=== PATIENT | female | born 1995 | race Caucasian/White ===

== ENCOUNTER 2017-06-26 17:21 | Emergency (ER) | payer BC ==
[~2017-06-26] VITALS: Ht 162.6 cm; Wt 54.4 kg
[2017-06-26 17:46] VITALS: BP_SYST 127
[2017-06-26] MEDS ORDERED: ONDANSETRON HCL 4 MG/2 ML VIAL IM STA (18:41)
[2017-06-26] MEDS ORDERED: HYDROmorphone 2 MG/ML VIAL IM PRN (18:45)
[2017-06-26 19:27] VITALS: BP_SYST 131
[2017-06-29] MEDS ORDERED: FERR-57 PO (18:55)
[2017-06-29] MEDS ORDERED: DIPH-179 PO (18:55)
[2017-06-29] MEDS ORDERED: PRED20TA PO (18:55)
[2017-06-29] MEDS ORDERED: TOP25 PO (18:55)
[2017-06-29] MEDS ORDERED: SUCR1TAB78 PO (18:55)
[2017-06-29] MEDS ORDERED: VENL75CA PO (18:55)
[2017-06-29] MEDS ORDERED: BUDE3CAP8 PO (18:55)
[2017-06-29] MEDS ORDERED: ONDA4TAB5 PO (18:55)
[2017-06-29] MEDS ORDERED: TRAZ-126 PO (18:55)
[2017-06-30] MEDS ORDERED: PRED10TA PO (10:45)
== END 2017-06-26 19:27 | disposition home or self-care (01) ==
LOC: SED 17:21
DX: N83.299 Other ovarian cyst, unspecified side (principal); Z91.040 Latex allergy status; Z91.018 Allergy to other foods
CPT/HCPCS: 81025; 96372; 99284; J1170; J2405

== ENCOUNTER 2017-08-21 20:51 | Inpatient (IN) | payer BC ==
[~2017-08-21] VITALS: Ht 162.6 cm; Wt 54.4 kg
[~2017-08-21 20:51] MED LIST: BUDE3CAP8 PO; DIPH-179 PO; DOCU-144 PO; FERR-57 PO; ONDA4TAB5 PO; PRED10TA PO; PRED20TA PO; SUCR1TAB78 PO; TOP25 PO; TRAM50TA92 PO; TRAZ-126 PO; VENL75CA PO
[2017-08-21 20:58] VITALS: BP_SYST 130
[2017-08-21] MEDS ORDERED: methylPREDNISolone SOD SUCC/PF 62.5 MG/ML VIAL IVP ONE (21:15)
[2017-08-21] MEDS ORDERED: ONDANSETRON HCL 4 MG/2 ML VIAL IVP ONE (22:00)
[2017-08-21] MEDS ORDERED: NACL 0.9% 1,000 ML IV ONE (22:00)
[2017-08-21 22:49] LABS: CALCIUM 8.7 mg/dL (8.4-11.0); CREATININE 0.64 mg/dL (0.55-1.30); POTASSIUM 3.2 mmol/L (3.5-5.1)
[2017-08-21 22:54] LABS: ALBUMIN 3.5 g/dL (3.4-4.8); TOTAL BILIRUBIN 0.4 mg/dL (0.0-1.0)
[2017-08-21 23:15] LABS: BASOPHILS % (AUTO) 0.2 % (0.0-2.0); EOSINOPHILS # (AUTO) 0.2 K/uL (0.0-0.4); EOSINOPHILS % (AUTO) 1.8 % (0.0-4.0); HEMATOCRIT 40.1 % (36-48); HEMOGLOBIN 12.9 g/dL (12.0-16.0); LYMPHOCYTES # (AUTO) 1.5 K/uL (1.0-5.5); LYMPHOCYTES % (AUTO) 17.1 % (20.5-51.5); MEAN CORPUSCULAR HEMOGLOBIN 32 pg (27-31); MEAN CORPUSCULAR HGB CONC 32 % (32-36); MEAN CORPUSCULAR VOLUME 99 fL (79.0-98.0); MONOCYTES # (AUTO) 0.6 K/uL (0.0-1.0); MONOCYTES % (AUTO) 7.1 % (1.7-9.3); NEUTROPHILS # (AUTO) 6.3 K/uL (1.8-7.7); NEUTROPHILS % (AUTO) 73.8 % (40.0-70.0); PLATELET COUNT (AUTO) 230 K/uL (130-430); RED BLOOD CELL COUNT(AUTO) 4.04 MIL/uL (4.2-6.2); RED CELL DISTRIBUTION WIDTH 11.7 % (9.0-15.0); WHITE BLOOD COUNT (AUTO) 8.6 K/uL (4.8-10.8)
[2017-08-21] MEDS ORDERED: KCL 10 mEq in 50 mL (PREMIX) 50 ML IV ONE (23:15)
[2017-08-21] MEDS ORDERED: KETOROLAC TROMETHAMINE 30 MG VIAL IVP ONE (23:15)
[2017-08-21 23:48] LABS: BILIRUBIN,URINE NEGATIVE (NEGATIVE); BLOOD, URINE NEGATIVE (NEGATIVE); CLARITY/URINE SL CLOUDY (CLEAR); COLOR,URINE YELLOW (YELLOW); GLUCOSE,URINE NEGATIVE (NEGATIVE); KETONES,URINE NEGATIVE (NEGATIVE); LEUKOCYTE ESTERASE ,URINE TRACE (NEGATIVE); NITRITE, URINE POSITIVE (NEGATIVE); PROTEIN URINE NEGATIVE (NEGATIVE); UROBILINOGEN,URINE 0.2 (0.2-1.0)
[2017-08-22 00:04] LABS: BACTERIA,URINE FEW /HPF (None Seen); MUCUS,URINE 2+ /LPF (None Seen); RBC,URINE 0-3 /HPF (0-3); WBC,URINE 0-3 /HPF (0-3)
[2017-08-22] MEDS ORDERED: cefTRIAXone 1 GM VIAL ONE (00:12)
[2017-08-22] MEDS ORDERED: cefTRIAXone 1 GM IVPB PREMIX 50 ML IV ONE (00:12)
[2017-08-22] MEDS ORDERED: cefTRIAXone 1 GM in D5W 50 ML IV ONE (00:15)
[2017-08-22 01:50] VITALS: BP_SYST 104
[2017-08-22] MEDS: ONDANSETRON HCL 4 MG/2 ML VIAL IVP PRN ×3 (04:12→22:02)
[2017-08-22] MEDS ORDERED: MORPHINE 2 MG/ML INJ. SYRINGE IVP ONE (04:15)
[2017-08-22 06:13] LABS: EOSINOPHILS % (AUTO) 0.1 % (0.0-4.0); MONOCYTES % (AUTO) 0.8 % (1.7-9.3)
[2017-08-22 06:16] LABS: ALBUMIN 2.8 g/dL (3.4-4.8); CALCIUM 8.5 mg/dL (8.4-11.0); CREATININE 0.67 mg/dL (0.55-1.30); POTASSIUM 3.9 mmol/L (3.5-5.1); TOTAL BILIRUBIN 0.2 mg/dL (0.0-1.0)
[2017-08-22 06:55] LABS: BASOPHILS % (AUTO) 0.2 % (0.0-2.0); HEMATOCRIT 35.8 % (36-48); LYMPHOCYTES # (AUTO) 0.4 K/uL (1.0-5.5); LYMPHOCYTES % (AUTO) 6.8 % (20.5-51.5); MEAN CORPUSCULAR HEMOGLOBIN 34 pg (27-31); MEAN CORPUSCULAR HGB CONC 34 % (32-36); MEAN CORPUSCULAR VOLUME 100 fL (79.0-98.0); NEUTROPHILS # (AUTO) 5.6 K/uL (1.8-7.7); NEUTROPHILS % (AUTO) 92.1 % (40.0-70.0); PLATELET COUNT (AUTO) 191 K/uL (130-430); RED BLOOD CELL COUNT(AUTO) 3.58 MIL/uL (4.2-6.2); RED CELL DISTRIBUTION WIDTH 11.5 % (9.0-15.0)
[2017-08-22] MEDS ORDERED: ACETAMINOPHEN 325 MG TABLET PO PRN (08:00)
[2017-08-22 08:22] VITALS: BP_SYST 108; BP_SYST 135
[2017-08-22] MEDS: MORPHINE 2 MG/ML INJ. SYRINGE IVP PRN ×2 (08:57→13:39)
[2017-08-22] MEDS: VENLAFAXINE HCL 50 MG TABLET PO SCH ×3 (08:58→21:28)
[2017-08-22] MEDS: TOPIRAMATE 25 MG TABLET(TOPAMAX) PO SCH (08:58)
[2017-08-22] MEDS ORDERED: methylPREDNISolone SOD SUCC 40 MG/ML VIAL IVP SCH (09:00)
[2017-08-22] MEDS ORDERED: traZODone HCL 50 MG TABLET (DESYREL) PO SCH (09:00)
[2017-08-22] MEDS: SUCRALFATE 1 GM TABLET PO SCH ×4 (11:15→22:02)
[2017-08-22 12:19] VITALS: BP_SYST 121
[2017-08-22] MEDS: KCL 20 mEq in NS 1000 mL 1,000 ML IV SCH (13:39)
[2017-08-22 16:00] VITALS: BP_SYST 126
[2017-08-22] MEDS: ALBUTEROL SULFATE 0.083% 2.5 MG/3 ML VIAL.NEB INH SCH ×2 (16:08→23:37)
[2017-08-22 16:10] VITALS: BP_SYST 121
[2017-08-22] MEDS: MORPHINE 4 MG/ML INJ. SYRINGE IVP PRN ×2 (18:06→22:01)
[2017-08-22 20:39] VITALS: BP_SYST 114
[2017-08-22] MEDS: traZODone HCL 50 MG TABLET (DESYREL) PO SCH (21:28)
[2017-08-23 01:12] VITALS: BP_SYST 105
[2017-08-23] MEDS: KCL 20 mEq in NS 1000 mL 1,000 ML IV SCH ×3 (01:16→20:08)
[2017-08-23] MEDS: MORPHINE 4 MG/ML INJ. SYRINGE IVP PRN ×5 (02:59→23:20)
[2017-08-23] MEDS: SUCRALFATE 1 GM TABLET PO SCH ×6 (02:59→23:16)
[2017-08-23] MEDS: ONDANSETRON HCL 4 MG/2 ML VIAL IVP PRN ×3 (02:59→20:08)
[2017-08-23 06:18] LABS: BASOPHILS % (AUTO) 0.8 % (0.0-2.0); EOSINOPHILS % (AUTO) 0.2 % (0.0-4.0); HEMATOCRIT 32.5 % (36-48); HEMOGLOBIN 10.7 g/dL (12.0-16.0); LYMPHOCYTES # (AUTO) 2.1 K/uL (1.0-5.5); LYMPHOCYTES % (AUTO) 38.2 % (20.5-51.5); MEAN CORPUSCULAR HEMOGLOBIN 33 pg (27-31); MEAN CORPUSCULAR HGB CONC 33 % (32-36); MEAN CORPUSCULAR VOLUME 101 fL (79.0-98.0); MONOCYTES # (AUTO) 0.4 K/uL (0.0-1.0); MONOCYTES % (AUTO) 7.1 % (1.7-9.3); NEUTROPHILS # (AUTO) 2.9 K/uL (1.8-7.7); NEUTROPHILS % (AUTO) 53.7 % (40.0-70.0); PLATELET COUNT (AUTO) 184 K/uL (130-430); RED BLOOD CELL COUNT(AUTO) 3.21 MIL/uL (4.2-6.2); RED CELL DISTRIBUTION WIDTH 11.5 % (9.0-15.0); WHITE BLOOD COUNT (AUTO) 5.4 K/uL (4.8-10.8)
[2017-08-23 06:55] LABS: ALBUMIN 2.3 g/dL (3.4-4.8); C-REACTIVE PROTEIN QUANT 0.6 mg/dL (0-0.5); CREATININE 0.54 mg/dL (0.55-1.30); POTASSIUM 3.3 mmol/L (3.5-5.1); TOTAL BILIRUBIN 0.1 mg/dL (0.0-1.0)
[2017-08-23] MEDS: ALBUTEROL SULFATE 0.083% 2.5 MG/3 ML VIAL.NEB INH SCH ×3 (07:20→23:00)
[2017-08-23] MEDS ORDERED: POTASSIUM CHLORIDE 10 MEQ TAB.PRT.SR PO ONE (07:45)
[2017-08-23 07:58] LABS: ERYTHROCYTE SEDIMENTATION RATE 5 MM/HR (0-20)
[2017-08-23 08:55] VITALS: BP_SYST 129
[2017-08-23] MEDS ORDERED: methylPREDNISolone SOD SUCC 40 MG/ML VIAL IVP SCH (09:00)
[2017-08-23] MEDS ORDERED: PREDNISONE 20 MG TABLET PO SCH (09:00)
[2017-08-23] MEDS: VENLAFAXINE HCL 50 MG TABLET PO SCH ×3 (09:00→20:09)
[2017-08-23] MEDS: TOPIRAMATE 25 MG TABLET(TOPAMAX) PO SCH (09:07)
[2017-08-23] MEDS: cefTRIAXone 1 GM in D5W 50 ML IV SCH (09:08)
[2017-08-23 12:09] VITALS: BP_SYST 125
[2017-08-23 15:31] VITALS: BP_SYST 118
[2017-08-23] MEDS ORDERED: BISACODYL 5 MG TABLET.DR (DULCOLAX) PO ONE (17:00)
[2017-08-23] MEDS ORDERED: GOLYTELY / COLYTE SOLUTION 4 LITERS PO ONE (18:00)
[2017-08-23 20:00] VITALS: BP_SYST 109
[2017-08-23] MEDS: traZODone HCL 50 MG TABLET (DESYREL) PO SCH (20:08)
[2017-08-24 00:18] VITALS: BP_SYST 104
[2017-08-24] MEDS: SUCRALFATE 1 GM TABLET PO SCH ×6 (02:00→22:10)
[2017-08-24] MEDS: MORPHINE 4 MG/ML INJ. SYRINGE IVP PRN ×4 (04:38→20:49)
[2017-08-24] MEDS: KCL 20 mEq in NS 1000 mL 1,000 ML IV SCH ×3 (06:24→18:03)
[2017-08-24] MEDS ORDERED: fentaNYL CITRATE/PF 100 MCG/2 ML AMP ONE (06:48)
[2017-08-24] MEDS ORDERED: SIMETHICONE 40 MG/0.6 ML ML ONE (06:48)
[2017-08-24 06:49] LABS: CALCIUM 8.6 mg/dL (8.4-11.0); CREATININE 0.52 mg/dL (0.55-1.30); POTASSIUM 3.5 mmol/L (3.5-5.1)
[2017-08-24] MEDS: ALBUTEROL SULFATE 0.083% 2.5 MG/3 ML VIAL.NEB INH SCH ×2 (07:00→23:31)
[2017-08-24 07:02] LABS: BASOPHILS % (AUTO) 0.4 % (0.0-2.0); EOSINOPHILS % (AUTO) 0.6 % (0.0-4.0); HEMATOCRIT 35.7 % (36-48); HEMOGLOBIN 11.6 g/dL (12.0-16.0); LYMPHOCYTES # (AUTO) 2.6 K/uL (1.0-5.5); LYMPHOCYTES % (AUTO) 37.1 % (20.5-51.5); MEAN CORPUSCULAR HEMOGLOBIN 32 pg (27-31); MEAN CORPUSCULAR HGB CONC 33 % (32-36); MEAN CORPUSCULAR VOLUME 99 fL (79.0-98.0); MONOCYTES # (AUTO) 0.6 K/uL (0.0-1.0); NEUTROPHILS # (AUTO) 3.7 K/uL (1.8-7.7); NEUTROPHILS % (AUTO) 52.9 % (40.0-70.0); PLATELET COUNT (AUTO) 242 K/uL (130-430); RED CELL DISTRIBUTION WIDTH 11.6 % (9.0-15.0); WHITE BLOOD COUNT (AUTO) 6.9 K/uL (4.8-10.8)
[2017-08-24] MEDS: MEPERIDINE HCL/PF 100 MG/ML AMP ONE ×4 (07:34→07:48)
[2017-08-24] MEDS: MIDAZOLAM HCL 5 MG/5 ML VIAL ONE ×5 (07:34→07:50)
[2017-08-24 09:00] VITALS: BP_SYST 107
[2017-08-24] MEDS: PREDNISONE 20 MG TABLET PO SCH (09:00)
[2017-08-24] MEDS: cefTRIAXone 1 GM in D5W 50 ML IV SCH (09:01)
[2017-08-24] MEDS: TOPIRAMATE 25 MG TABLET(TOPAMAX) PO SCH (09:01)
[2017-08-24] MEDS: VENLAFAXINE HCL 50 MG TABLET PO SCH ×3 (09:03→20:48)
[2017-08-24] MEDS: ONDANSETRON HCL 4 MG/2 ML VIAL IVP PRN ×2 (10:59→20:48)
[2017-08-24 12:37] VITALS: BP_SYST 104
[2017-08-24 16:10] VITALS: BP_SYST 103
[2017-08-24] MEDS: traMADol HCL HCL 50 MG TABLET (ULTRAM) PO PRN (16:50)
[2017-08-24 20:00] VITALS: BP_SYST 123
[2017-08-24] MEDS: traZODone HCL 50 MG TABLET (DESYREL) PO SCH (20:47)
[2017-08-24 23:10] VITALS: BP_SYST 124
[2017-08-25] MEDS: SUCRALFATE 1 GM TABLET PO SCH ×6 (02:27→22:33)
[2017-08-25] MEDS: MORPHINE 4 MG/ML INJ. SYRINGE IVP PRN ×5 (02:28→20:42)
[2017-08-25] MEDS: ONDANSETRON HCL 4 MG/2 ML VIAL IVP PRN ×2 (06:21→18:48)
[2017-08-25 06:46] LABS: CALCIUM 8.5 mg/dL (8.4-11.0); CREATININE 0.44 mg/dL (0.55-1.30); POTASSIUM 3.3 mmol/L (3.5-5.1)
[2017-08-25 08:00] VITALS: BP_SYST 123
[2017-08-25] MEDS: ALBUTEROL SULFATE 0.083% 2.5 MG/3 ML VIAL.NEB INH SCH ×3 (08:22→23:00)
[2017-08-25] MEDS: PREDNISONE 20 MG TABLET PO SCH (08:49)
[2017-08-25] MEDS: cefTRIAXone 1 GM in D5W 50 ML IV SCH (08:50)
[2017-08-25] MEDS: VENLAFAXINE HCL 50 MG TABLET PO SCH ×3 (08:50→20:46)
[2017-08-25] MEDS: TOPIRAMATE 25 MG TABLET(TOPAMAX) PO SCH (08:50)
[2017-08-25] MEDS: traMADol HCL HCL 50 MG TABLET (ULTRAM) PO PRN (09:50)
[2017-08-25] MEDS ORDERED: INSULIN ASPART 100 UNITS/ML, 10 ML VIAL (NovoLOG) SUBCUT PRN (10:00)
[2017-08-25] MEDS ORDERED: POTASSIUM CHLORIDE 10 MEQ TAB.PRT.SR PO ONE (10:00)
[2017-08-25 11:28] VITALS: BP_SYST 110
[2017-08-25] MEDS: KCL 20 mEq in NS 1000 mL 1,000 ML IV SCH ×2 (11:31→21:58)
[2017-08-25] MEDS: HYDROCORTISONE 100 MG/60 ML RC SCH (13:30)
[2017-08-25 15:35] VITALS: BP_SYST 113
[2017-08-25 15:44] VITALS: BP_SYST 113
[2017-08-25 19:00] VITALS: BP_SYST 110
[2017-08-25 20:00] VITALS: BP_SYST 110
[2017-08-25] MEDS: traZODone HCL 50 MG TABLET (DESYREL) PO SCH (20:45)
[2017-08-26 00:08] VITALS: BP_SYST 112
[2017-08-26] MEDS: SUCRALFATE 1 GM TABLET PO SCH ×6 (03:06→23:41)
[2017-08-26] MEDS: KCL 20 mEq in NS 1000 mL 1,000 ML IV SCH ×2 (03:07→23:39)
[2017-08-26] MEDS: MORPHINE 4 MG/ML INJ. SYRINGE IVP PRN ×5 (05:28→23:37)
[2017-08-26] MEDS: ONDANSETRON HCL 4 MG/2 ML VIAL IVP PRN ×3 (05:34→20:45)
[2017-08-26 06:00] LABS: CALCIUM 8.5 mg/dL (8.4-11.0); CREATININE 0.48 mg/dL (0.55-1.30); POTASSIUM 3.9 mmol/L (3.5-5.1)
[2017-08-26] MEDS: ALBUTEROL SULFATE 0.083% 2.5 MG/3 ML VIAL.NEB INH SCH ×4 (07:00→22:50)
[2017-08-26 08:00] VITALS: BP_SYST 104
[2017-08-26] MEDS: TOPIRAMATE 25 MG TABLET(TOPAMAX) PO SCH (08:53)
[2017-08-26] MEDS: methylPREDNISolone SOD SUCC 40 MG/ML VIAL IVP SCH (08:53)
[2017-08-26] MEDS: cefTRIAXone 1 GM in D5W 50 ML IV SCH (08:53)
[2017-08-26] MEDS: VENLAFAXINE HCL 50 MG TABLET PO SCH ×3 (08:55→20:46)
[2017-08-26 11:29] LABS: BASOPHILS % (AUTO) 0.1 % (0.0-2.0); CALCIUM 8.8 mg/dL (8.4-11.0); CREATININE 0.56 mg/dL (0.55-1.30); EOSINOPHILS % (AUTO) 0.2 % (0.0-4.0); HEMATOCRIT 38.6 % (36-48); HEMOGLOBIN 12.5 g/dL (12.0-16.0); LYMPHOCYTES # (AUTO) 0.8 K/uL (1.0-5.5); LYMPHOCYTES % (AUTO) 11.9 % (20.5-51.5); MEAN CORPUSCULAR HEMOGLOBIN 32 pg (27-31); MEAN CORPUSCULAR HGB CONC 32 % (32-36); MEAN CORPUSCULAR VOLUME 100 fL (79.0-98.0); MONOCYTES # (AUTO) 0.2 K/uL (0.0-1.0); MONOCYTES % (AUTO) 2.3 % (1.7-9.3); NEUTROPHILS # (AUTO) 5.8 K/uL (1.8-7.7); NEUTROPHILS % (AUTO) 85.5 % (40.0-70.0); PLATELET COUNT (AUTO) 381 K/uL (130-430); POTASSIUM 4.1 mmol/L (3.5-5.1); RED BLOOD CELL COUNT(AUTO) 3.88 MIL/uL (4.2-6.2); RED CELL DISTRIBUTION WIDTH 11.8 % (9.0-15.0); WHITE BLOOD COUNT (AUTO) 6.8 K/uL (4.8-10.8)
[2017-08-26 11:36] LABS: ALBUMIN 2.9 g/dL (3.4-4.8); TOTAL BILIRUBIN 0.1 mg/dL (0.0-1.0)
[2017-08-26 12:07] VITALS: BP_SYST 117
[2017-08-26] MEDS: HYDROCORTISONE 100 MG/60 ML RC SCH (13:07)
[2017-08-26 17:05] VITALS: BP_SYST 106
[2017-08-26 20:00] VITALS: BP_SYST 109
[2017-08-26] MEDS: traZODone HCL 50 MG TABLET (DESYREL) PO SCH (20:45)
[2017-08-27 00:58] VITALS: BP_SYST 118
[2017-08-27] MEDS: SUCRALFATE 1 GM TABLET PO SCH ×4 (02:08→15:27)
[2017-08-27] MEDS: ONDANSETRON HCL 4 MG/2 ML VIAL IVP PRN (06:25)
[2017-08-27] MEDS: MORPHINE 4 MG/ML INJ. SYRINGE IVP PRN ×2 (06:26→11:37)
[2017-08-27 06:47] LABS: CALCIUM 8.6 mg/dL (8.4-11.0); CREATININE 0.5 mg/dL (0.55-1.30); POTASSIUM 3.7 mmol/L (3.5-5.1)
[2017-08-27 06:58] LABS: ALBUMIN 2.5 g/dL (3.4-4.8)
[2017-08-27 07:14] LABS: BASOPHILS % (AUTO) 0.3 % (0.0-2.0); EOSINOPHILS % (AUTO) 0.5 % (0.0-4.0); HEMATOCRIT 33.7 % (36-48); HEMOGLOBIN 11.1 g/dL (12.0-16.0); LYMPHOCYTES % (AUTO) 28.8 % (20.5-51.5); MEAN CORPUSCULAR HEMOGLOBIN 33 pg (27-31); MEAN CORPUSCULAR HGB CONC 33 % (32-36); MEAN CORPUSCULAR VOLUME 100 fL (79.0-98.0); MONOCYTES # (AUTO) 0.5 K/uL (0.0-1.0); MONOCYTES % (AUTO) 7.5 % (1.7-9.3); NEUTROPHILS # (AUTO) 4.3 K/uL (1.8-7.7); NEUTROPHILS % (AUTO) 62.9 % (40.0-70.0); PLATELET COUNT (AUTO) 344 K/uL (130-430); RED BLOOD CELL COUNT(AUTO) 3.37 MIL/uL (4.2-6.2); RED CELL DISTRIBUTION WIDTH 11.5 % (9.0-15.0); WHITE BLOOD COUNT (AUTO) 6.8 K/uL (4.8-10.8)
[2017-08-27 07:17] LABS: TOTAL BILIRUBIN 0.1 mg/dL (0.0-1.0)
[2017-08-27] MEDS: ALBUTEROL SULFATE 0.083% 2.5 MG/3 ML VIAL.NEB INH SCH ×2 (07:50→15:20)
[2017-08-27 08:00] VITALS: BP_SYST 110
[2017-08-27] MEDS: methylPREDNISolone SOD SUCC 40 MG/ML VIAL IVP SCH (08:58)
[2017-08-27] MEDS: TOPIRAMATE 25 MG TABLET(TOPAMAX) PO SCH (08:58)
[2017-08-27] MEDS: VENLAFAXINE HCL 50 MG TABLET PO SCH ×2 (08:59→15:27)
[2017-08-27] MEDS: HYDROCORTISONE 100 MG/60 ML RC SCH (09:00)
[2017-08-27] MEDS: cefTRIAXone 1 GM in D5W 50 ML IV SCH (09:00)
[2017-08-27] MEDS: KCL 20 mEq in NS 1000 mL 1,000 ML IV SCH (11:05)
[2017-08-27 12:00] VITALS: BP_SYST 118
[2017-08-27 16:30] VITALS: BP_SYST 115
[2017-08-27 16:44] VITALS: BP_SYST 115
== END 2017-08-27 17:20 | disposition home or self-care (01) | DRG 385 ==
LOC: SED 20:51 → SMU 08-22 00:51
PROVIDERS: ADMIT Internal Medicine; ATTEND Internal Medicine
PROC: 0DBN8ZX Excision of Sigmoid Colon, Via Natural or Artificial Opening Endoscopic, Diagnostic (ICD-10-PCS; 2017-08-24)
PROC: 0DBK8ZX Excision of Ascending Colon, Via Natural or Artificial Opening Endoscopic, Diagnostic (ICD-10-PCS; 2017-08-24)
PROC: 0DBL8ZX Excision of Transverse Colon, Via Natural or Artificial Opening Endoscopic, Diagnostic (ICD-10-PCS; 2017-08-24)
PROC: 0DBP8ZX Excision of Rectum, Via Natural or Artificial Opening Endoscopic, Diagnostic (ICD-10-PCS; 2017-08-24)
PROC: 0DBM8ZX Excision of Descending Colon, Via Natural or Artificial Opening Endoscopic, Diagnostic (ICD-10-PCS; principal; 2017-08-24 07:30)
DX: K51.90 Ulcerative colitis, unspecified, without complications (principal); E43 Unspecified severe protein-calorie malnutrition; J45.901 Unspecified asthma with (acute) exacerbation; N39.0 Urinary tract infection, site not specified; R13.10 Dysphagia, unspecified; E86.0 Dehydration; K51.50 Left sided colitis without complications; E28.2 Polycystic ovarian syndrome; E87.6 Hypokalemia; J02.8 Acute pharyngitis due to other specified organisms; B97.89 Other viral agents as the cause of diseases classified elsewhere; G43.909 Migraine, unspecified, not intractable, without status migrainosus; F41.9 Anxiety disorder, unspecified; N80.9 Endometriosis, unspecified; K64.8 Other hemorrhoids; Z90.49 Acquired absence of other specified parts of digestive tract; Z91.040 Latex allergy status; Z91.018 Allergy to other foods; Z79.899 Other long term (current) drug therapy; Z68.20 Body mass index [BMI] 20.0-20.9, adult
CPT/HCPCS: 36415; 45380; 80048; 80053; 81000-TC; 81025; 82962; 83735-TC; 84702-TC; 85025; 85651-TC; 86140; 87045-TC; 87046; 87086; 87177; 87230-TC; 88305; 89055; 94640; 94760; 96361; 96365; 96367; 96375; 99285; J0696; J1030; J1815; J1885; J2175; J2250; J2270; J2405; J2930; J3010; J3480; J7030; J7060; J7512

== ENCOUNTER 2017-09-09 11:20 | Inpatient (IN) | payer BC ==
[~2017-09-09] VITALS: Ht 162.6 cm; Wt 56.7 kg
[2017-09-09 11:20] VITALS: BP_SYST 113
[~2017-09-09 11:20] MED LIST changes: -ONDA4TAB5 PO; -PRED10TA PO; -PRED20TA PO
[2017-09-09 12:44] LABS: BILIRUBIN,URINE NEGATIVE (NEGATIVE); BLOOD, URINE 3+ (NEGATIVE); CLARITY/URINE HAZY (CLEAR); COLOR,URINE RED (YELLOW); GLUCOSE,URINE NEGATIVE (NEGATIVE); KETONES,URINE NEGATIVE (NEGATIVE); LEUKOCYTE ESTERASE ,URINE NEGATIVE (NEGATIVE); NITRITE, URINE NEGATIVE (NEGATIVE); PH,URINE 7.5 (5.0-8.0); PROTEIN URINE TRACE (NEGATIVE); UROBILINOGEN,URINE 0.2 (0.2-1.0)
[2017-09-09 12:51] LABS: BASOPHILS % (AUTO) 0.1 % (0.0-2.0); EOSINOPHILS % (AUTO) 0.4 % (0.0-4.0); HEMATOCRIT 33.2 % (36-48); HEMOGLOBIN 10.9 g/dL (12.0-16.0); LYMPHOCYTES # (AUTO) 0.9 K/uL (1.0-5.5); LYMPHOCYTES % (AUTO) 9.2 % (20.5-51.5); MEAN CORPUSCULAR HEMOGLOBIN 33 pg (27-31); MEAN CORPUSCULAR HGB CONC 33 % (32-36); MEAN CORPUSCULAR VOLUME 100 fL (79.0-98.0); MONOCYTES # (AUTO) 0.3 K/uL (0.0-1.0); MONOCYTES % (AUTO) 2.9 % (1.7-9.3); NEUTROPHILS # (AUTO) 8.9 K/uL (1.8-7.7); NEUTROPHILS % (AUTO) 87.4 % (40.0-70.0); PLATELET COUNT (AUTO) 215 K/uL (130-430); RED BLOOD CELL COUNT(AUTO) 3.31 MIL/uL (4.2-6.2); RED CELL DISTRIBUTION WIDTH 12.6 % (9.0-15.0); WHITE BLOOD COUNT (AUTO) 10.1 K/uL (4.8-10.8)
[2017-09-09 12:59] LABS: CALCIUM 8.3 mg/dL (8.4-11.0); CREATININE 0.68 mg/dL (0.55-1.30)
[2017-09-09 13:04] LABS: ALBUMIN 3.1 g/dL (3.4-4.8); INR 1.1 (0.8-1.2); PROTHROMBIN TIME 10.8 SECS (9.5-12.5); TOTAL BILIRUBIN 0.2 mg/dL (0.0-1.0)
[2017-09-09 13:07] LABS: POTASSIUM 2.6 mmol/L (3.5-5.1)
[2017-09-09 13:08] LABS: BACTERIA,URINE FEW /HPF (None Seen); RBC,URINE 0-3 /HPF (0-3); WBC,URINE >100 /HPF (0-3)
[2017-09-09 13:09] LABS: MUCUS,URINE None Seen /LPF (None Seen)
[2017-09-09] MEDS ORDERED: KCL 20 mEq in 100 mL (PREMIX) 100 ML IV ONE (13:15)
[2017-09-09] MEDS ORDERED: SUCR1TAB78 PO (14:33)
[2017-09-09] MEDS ORDERED: BUDE6.9H INH (14:33)
[2017-09-09] MEDS ORDERED: ALPR0.2583 PO (14:33)
[2017-09-09] MEDS ORDERED: IRON1CAP27 PO (14:33)
[2017-09-09] MEDS ORDERED: TOP25 PO (14:33)
[2017-09-09] MEDS ORDERED: TRAZ150T77 PO (14:33)
[2017-09-09] MEDS ORDERED: ONDA4TAB22 PO (14:33)
[2017-09-09] MEDS ORDERED: LIALDA (14:33)
[2017-09-09] MEDS ORDERED: RANI75TA19 PO (14:33)
[2017-09-09] MEDS ORDERED: VENL75CA PO (14:33)
[2017-09-09] MEDS ORDERED: TRAM50TA92 PO (14:33)
[2017-09-09 14:56] VITALS: BP_SYST 132
[2017-09-09] MEDS: NACL 0.9% 1,000 ML IV SCH (15:00)
[2017-09-09] MEDS ORDERED: ACETAMINOPHEN 325 MG TABLET PO PRN (15:30)
[2017-09-09] MEDS ORDERED: DOCUSATE SODIUM 100 MG CAPSULE PO PRN (15:30)
[2017-09-09] MEDS ORDERED: LORazepam 2 MG/ML VIAL IVP PRN (15:30)
[2017-09-09] MEDS ORDERED: MUPIROCIN 2% TOPICAL OINTMENT 22 GM NS PRN (15:30)
[2017-09-09] MEDS ORDERED: MAGNESIUM SULFATE 50 ML IV PRN (15:30)
[2017-09-09] MEDS ORDERED: ZOLPIDEM TARTRATE 5 MG TABLET PO PRN (15:30)
[2017-09-09] MEDS: ONDANSETRON HCL 4 MG/2 ML VIAL IVP PRN (16:36)
[2017-09-09] MEDS: MORPHINE 4 MG/ML INJ. SYRINGE IVP PRN ×3 (16:36→22:27)
[2017-09-09 16:37] VITALS: BP_SYST 132
[2017-09-09] MEDS: POTASSIUM CHLORIDE 20 MEQ TAB.PRT.SR PO PRN (17:36)
[2017-09-09 20:00] VITALS: BP_SYST 124
[2017-09-10] MEDS: NACL 0.9% 1,000 ML IV SCH ×3 (01:07→14:39)
[2017-09-10 01:32] VITALS: BP_SYST 121
[2017-09-10] MEDS: ONDANSETRON HCL 4 MG/2 ML VIAL IVP PRN ×3 (02:20→22:29)
[2017-09-10] MEDS: MORPHINE 4 MG/ML INJ. SYRINGE IVP PRN ×6 (02:20→22:28)
[2017-09-10 06:14] LABS: BASOPHILS % (AUTO) 0.1 % (0.0-2.0); EOSINOPHILS % (AUTO) 0.6 % (0.0-4.0); HEMATOCRIT 32.5 % (36-48); HEMOGLOBIN 10.7 g/dL (12.0-16.0); LYMPHOCYTES # (AUTO) 1.9 K/uL (1.0-5.5); LYMPHOCYTES % (AUTO) 27.6 % (20.5-51.5); MEAN CORPUSCULAR HEMOGLOBIN 33 pg (27-31); MEAN CORPUSCULAR HGB CONC 33 % (32-36); MEAN CORPUSCULAR VOLUME 101 fL (79.0-98.0); MONOCYTES # (AUTO) 0.4 K/uL (0.0-1.0); MONOCYTES % (AUTO) 6.1 % (1.7-9.3); NEUTROPHILS # (AUTO) 4.8 K/uL (1.8-7.7); NEUTROPHILS % (AUTO) 65.6 % (40.0-70.0); PLATELET COUNT (AUTO) 192 K/uL (130-430); RED BLOOD CELL COUNT(AUTO) 3.22 MIL/uL (4.2-6.2); RED CELL DISTRIBUTION WIDTH 12.6 % (9.0-15.0); WHITE BLOOD COUNT (AUTO) 7.1 K/uL (4.8-10.8)
[2017-09-10 06:19] LABS: CALCIUM 8.1 mg/dL (8.4-11.0); CREATININE 0.64 mg/dL (0.55-1.30)
[2017-09-10 06:35] LABS: POTASSIUM 2.6 mmol/L (3.5-5.1)
[2017-09-10] MEDS ORDERED: POTASSIUM CHLORIDE 20 MEQ/PKT PACKET PO ONE ×2 (07:00→12:00)
[2017-09-10 08:00] VITALS: BP_SYST 117
[2017-09-10 08:22] LABS: HCG,QUAL RESULT NEGATIVE (NEGATIVE)
[2017-09-10] MEDS: TOPIRAMATE 25 MG TABLET(TOPAMAX) PO SCH ×2 (08:29→20:48)
[2017-09-10] MEDS: DOCUSATE SODIUM 100 MG CAPSULE PO SCH ×2 (08:29→20:47)
[2017-09-10] MEDS: FLUTICASONE/VILANTEROL 1 EACH BLST.W.DEV INH SCH (08:29)
[2017-09-10] MEDS: cefTRIAXone 1 GM in D5W 50 ML IV SCH (08:29)
[2017-09-10] MEDS: Effexor XR 37.5 MG PO SCH (08:30)
[2017-09-10] MEDS: traZODone HCL 50 MG TABLET (DESYREL) PO SCH (08:30)
[2017-09-10] MEDS: SUCRALFATE 1 GM TABLET PO SCH ×4 (10:21→22:29)
[2017-09-10 12:38] VITALS: BP_SYST 99
[2017-09-10 16:14] VITALS: BP_SYST 122
[2017-09-10 19:45] VITALS: BP_SYST 113
[2017-09-11 00:49] VITALS: BP_SYST 112
[2017-09-11] MEDS: ONDANSETRON HCL 4 MG/2 ML VIAL IVP PRN ×3 (02:16→18:17)
[2017-09-11] MEDS: SUCRALFATE 1 GM TABLET PO SCH ×5 (02:16→18:05)
[2017-09-11] MEDS: NACL 0.9% 1,000 ML IV SCH ×2 (02:16→16:37)
[2017-09-11] MEDS: MORPHINE 4 MG/ML INJ. SYRINGE IVP PRN ×5 (02:17→21:06)
[2017-09-11 06:32] LABS: CALCIUM 8.4 mg/dL (8.4-11.0); CREATININE 0.51 mg/dL (0.55-1.30)
[2017-09-11 06:53] LABS: POTASSIUM 2.9 mmol/L (3.5-5.1)
[2017-09-11 06:56] LABS: BASOPHILS % (AUTO) 0.3 % (0.0-2.0); EOSINOPHILS # (AUTO) 0.1 K/uL (0.0-0.4); EOSINOPHILS % (AUTO) 1.8 % (0.0-4.0); HEMATOCRIT 34.8 % (36-48); HEMOGLOBIN 11.6 g/dL (12.0-16.0); LYMPHOCYTES # (AUTO) 2.2 K/uL (1.0-5.5); LYMPHOCYTES % (AUTO) 30.4 % (20.5-51.5); MEAN CORPUSCULAR HEMOGLOBIN 34 pg (27-31); MEAN CORPUSCULAR HGB CONC 33 % (32-36); MEAN CORPUSCULAR VOLUME 101 fL (79.0-98.0); MONOCYTES # (AUTO) 0.5 K/uL (0.0-1.0); MONOCYTES % (AUTO) 6.8 % (1.7-9.3); NEUTROPHILS # (AUTO) 4.5 K/uL (1.8-7.7); NEUTROPHILS % (AUTO) 60.7 % (40.0-70.0); PLATELET COUNT (AUTO) 211 K/uL (130-430); RED BLOOD CELL COUNT(AUTO) 3.45 MIL/uL (4.2-6.2); RED CELL DISTRIBUTION WIDTH 12.8 % (9.0-15.0); WHITE BLOOD COUNT (AUTO) 7.3 K/uL (4.8-10.8)
[2017-09-11] MEDS: POTASSIUM CHLORIDE 20 MEQ TAB.PRT.SR PO PRN (07:00)
[2017-09-11 08:00] VITALS: BP_SYST 115
[2017-09-11] MEDS: DOCUSATE SODIUM 100 MG CAPSULE PO SCH ×4 (09:00→21:01)
[2017-09-11] MEDS: traZODone HCL 50 MG TABLET (DESYREL) PO SCH (09:52)
[2017-09-11] MEDS: TOPIRAMATE 25 MG TABLET(TOPAMAX) PO SCH ×2 (09:52→21:01)
[2017-09-11] MEDS: cefTRIAXone 1 GM in D5W 50 ML IV SCH (09:52)
[2017-09-11] MEDS: Effexor XR 37.5 MG PO SCH (09:57)
[2017-09-11] MEDS: methylPREDNISolone SOD SUCC/PF 62.5 MG/ML VIAL IVP SCH ×2 (09:57→21:01)
[2017-09-11 12:15] VITALS: BP_SYST 108
[2017-09-11] MEDS ORDERED: POTASSIUM CHLORIDE 20 MEQ/PKT PACKET PO ONE (14:00)
[2017-09-11 16:48] VITALS: BP_SYST 110
[2017-09-11 20:10] VITALS: BP_SYST 108
[2017-09-11 23:43] VITALS: BP_SYST 124
[2017-09-12] MEDS: SUCRALFATE 1 GM TABLET PO SCH ×7 (00:44→20:34)
[2017-09-12] MEDS: MORPHINE 4 MG/ML INJ. SYRINGE IVP PRN ×5 (02:38→20:35)
[2017-09-12 06:40] LABS: HEMOGLOBIN 12.6 g/dL (12.0-16.0); LYMPHOCYTES # (AUTO) 0.7 K/uL (1.0-5.5); LYMPHOCYTES % (AUTO) 5.6 % (20.5-51.5); MEAN CORPUSCULAR HEMOGLOBIN 34 pg (27-31); MEAN CORPUSCULAR HGB CONC 33 % (32-36); MEAN CORPUSCULAR VOLUME 102 fL (79.0-98.0); MONOCYTES # (AUTO) 0.2 K/uL (0.0-1.0); MONOCYTES % (AUTO) 1.4 % (1.7-9.3); NEUTROPHILS # (AUTO) 10.9 K/uL (1.8-7.7); PLATELET COUNT (AUTO) 232 K/uL (130-430); RED BLOOD CELL COUNT(AUTO) 3.73 MIL/uL (4.2-6.2); RED CELL DISTRIBUTION WIDTH 12.6 % (9.0-15.0); WHITE BLOOD COUNT (AUTO) 11.8 K/uL (4.8-10.8)
[2017-09-12 07:02] LABS: CALCIUM 9.1 mg/dL (8.4-11.0); CREATININE 0.51 mg/dL (0.55-1.30); POTASSIUM 3.8 mmol/L (3.5-5.1)
[2017-09-12 08:05] VITALS: BP_SYST 118
[2017-09-12] MEDS: DOCUSATE SODIUM 100 MG CAPSULE PO SCH ×2 (09:00→20:34)
[2017-09-12] MEDS: traZODone HCL 50 MG TABLET (DESYREL) PO SCH (09:00)
[2017-09-12] MEDS: cefTRIAXone 1 GM in D5W 50 ML IV SCH (09:00)
[2017-09-12] MEDS: methylPREDNISolone SOD SUCC/PF 62.5 MG/ML VIAL IVP SCH ×2 (09:00→20:35)
[2017-09-12] MEDS: TOPIRAMATE 25 MG TABLET(TOPAMAX) PO SCH ×2 (09:00→20:34)
[2017-09-12] MEDS: Effexor XR 37.5 MG PO SCH (09:01)
[2017-09-12] MEDS: NACL 0.9% 1,000 ML IV SCH ×2 (09:02→17:10)
[2017-09-12 11:58] VITALS: BP_SYST 123
[2017-09-12 16:13] VITALS: BP_SYST 114
[2017-09-12 20:00] VITALS: BP_SYST 111
[2017-09-12] MEDS: ONDANSETRON HCL 4 MG/2 ML VIAL IVP PRN (20:35)
[2017-09-13 00:15] VITALS: BP_SYST 115
[2017-09-13] MEDS: ONDANSETRON HCL 4 MG/2 ML VIAL IVP PRN ×3 (00:41→13:44)
[2017-09-13] MEDS: MORPHINE 4 MG/ML INJ. SYRINGE IVP PRN ×5 (00:42→17:55)
[2017-09-13] MEDS: NACL 0.9% 1,000 ML IV SCH ×2 (02:23→17:55)
[2017-09-13] MEDS: SUCRALFATE 1 GM TABLET PO SCH ×5 (02:23→18:00)
[2017-09-13 06:43] LABS: HEMATOCRIT 35.4 % (36-48); HEMOGLOBIN 11.6 g/dL (12.0-16.0); LYMPHOCYTES # (AUTO) 0.5 K/uL (1.0-5.5); LYMPHOCYTES % (AUTO) 5.4 % (20.5-51.5); MEAN CORPUSCULAR HEMOGLOBIN 33 pg (27-31); MEAN CORPUSCULAR HGB CONC 33 % (32-36); MEAN CORPUSCULAR VOLUME 101 fL (79.0-98.0); MONOCYTES # (AUTO) 0.2 K/uL (0.0-1.0); MONOCYTES % (AUTO) 2.3 % (1.7-9.3); NEUTROPHILS # (AUTO) 8.6 K/uL (1.8-7.7); NEUTROPHILS % (AUTO) 92.3 % (40.0-70.0); PLATELET COUNT (AUTO) 209 K/uL (130-430); RED CELL DISTRIBUTION WIDTH 12.8 % (9.0-15.0); WHITE BLOOD COUNT (AUTO) 9.3 K/uL (4.8-10.8)
[2017-09-13 06:59] LABS: CALCIUM 8.5 mg/dL (8.4-11.0); CREATININE 0.46 mg/dL (0.55-1.30)
[2017-09-13 07:51] VITALS: BP_SYST 115
[2017-09-13] MEDS: DOCUSATE SODIUM 100 MG CAPSULE PO SCH ×2 (09:00→21:00)
[2017-09-13] MEDS: FLUTICASONE/VILANTEROL 1 EACH BLST.W.DEV INH SCH (09:31)
[2017-09-13] MEDS: cefTRIAXone 1 GM in D5W 50 ML IV SCH (09:32)
[2017-09-13] MEDS: methylPREDNISolone SOD SUCC/PF 62.5 MG/ML VIAL IVP SCH ×2 (09:33→21:44)
[2017-09-13] MEDS: POTASSIUM CHLORIDE 20 MEQ TAB.PRT.SR PO SCH ×2 (09:34→21:44)
[2017-09-13] MEDS: traZODone HCL 50 MG TABLET (DESYREL) PO SCH (09:34)
[2017-09-13] MEDS: POTASSIUM CHLORIDE 20 MEQ TAB.PRT.SR PO PRN (09:34)
[2017-09-13] MEDS: TOPIRAMATE 25 MG TABLET(TOPAMAX) PO SCH ×2 (09:35→21:44)
[2017-09-13] MEDS: Effexor XR 37.5 MG PO SCH (09:35)
[2017-09-13 12:00] VITALS: BP_SYST 117
[2017-09-13 14:36] LABS: CALCIUM 8.4 mg/dL (8.4-11.0); CREATININE 0.54 mg/dL (0.55-1.30); POTASSIUM 4.2 mmol/L (3.5-5.1)
[2017-09-13 16:31] VITALS: BP_SYST 109
[2017-09-13 20:00] VITALS: BP_SYST 126
[2017-09-13] MEDS ORDERED: MESALAMINE 4 GM/60 ML ENEMA RC SCH (21:00)
[2017-09-14] VITALS (7 sets, daily range): BP systolic 118–135
[2017-09-14] MEDS: SUCRALFATE 1 GM TABLET PO SCH ×4 (00:13→12:50)
[2017-09-14] MEDS: MORPHINE 4 MG/ML INJ. SYRINGE IVP PRN ×4 (00:15→12:46)
[2017-09-14] MEDS: NACL 0.9% 1,000 ML IV SCH (05:10)
[2017-09-14 06:35] LABS: ANION GAP 5 (5-15); CALCIUM 8.1 mg/dL (8.4-11.0); CHLORIDE 109 mmol/L (98-107); CREATININE 0.55 mg/dL (0.55-1.30); GLUCOSE 115 mg/dL (70-99); POTASSIUM 3.4 mmol/L (3.5-5.1); SODIUM SERUM 141 mmol/L (136-145); UREA NITROGEN, BLOOD 7 mg/dL (8-21)
[2017-09-14 06:48] LABS: C-REACTIVE PROTEIN QUANT < 0.2 mg/dL (0-0.5); GFR AFRICAN AMERICAN 179 mL/min (>90)
[2017-09-14 06:51] LABS: BASOPHILS % (AUTO) 0.1 % (0.0-2.0); HEMATOCRIT 33.8 % (36-48); HEMOGLOBIN 11.5 g/dL (12.0-16.0); LYMPHOCYTES # (AUTO) 0.5 K/uL (1.0-5.5); LYMPHOCYTES % (AUTO) 6.5 % (20.5-51.5); MEAN CORPUSCULAR HEMOGLOBIN 34 pg (27-31); MEAN CORPUSCULAR HGB CONC 34 % (32-36); MEAN CORPUSCULAR VOLUME 100 fL (79.0-98.0); MONOCYTES # (AUTO) 0.2 K/uL (0.0-1.0); MONOCYTES % (AUTO) 2.4 % (1.7-9.3); NEUTROPHILS # (AUTO) 6.3 K/uL (1.8-7.7); PLATELET COUNT (AUTO) 204 K/uL (130-430); RED BLOOD CELL COUNT(AUTO) 3.38 MIL/uL (4.2-6.2)
[2017-09-14] MEDS: Effexor XR 37.5 MG PO SCH (08:50)
[2017-09-14] MEDS: POTASSIUM CHLORIDE 20 MEQ TAB.PRT.SR PO SCH (08:51)
[2017-09-14] MEDS: traZODone HCL 50 MG TABLET (DESYREL) PO SCH (08:51)
[2017-09-14] MEDS: TOPIRAMATE 25 MG TABLET(TOPAMAX) PO SCH (08:52)
[2017-09-14] MEDS: cefTRIAXone 1 GM in D5W 50 ML IV SCH (08:52)
[2017-09-14] MEDS: methylPREDNISolone SOD SUCC/PF 62.5 MG/ML VIAL IVP SCH (08:52)
[2017-09-14] MEDS: FLUTICASONE/VILANTEROL 1 EACH BLST.W.DEV INH SCH (08:53)
[2017-09-14] MEDS ORDERED: HYDROCORTISONE 100 MG/60 ML RC SCH (09:00)
[2017-09-14 09:33] LABS: ERYTHROCYTE SEDIMENTATION RATE 9 MM/HR (0-20)
[2017-09-14] MEDS: ONDANSETRON HCL 4 MG/2 ML VIAL IVP PRN (12:50)
== END 2017-09-14 16:50 | disposition home or self-care (01) | DRG 386 ==
LOC: SED 11:20 → SMU 13:48
PROVIDERS: ADMIT General Practice; ATTEND General Practice
DX: K51.90 Ulcerative colitis, unspecified, without complications (principal); E44.0 Moderate protein-calorie malnutrition; D63.8 Anemia in other chronic diseases classified elsewhere; E87.5 Hyperkalemia; F11.20 Opioid dependence, uncomplicated; N39.0 Urinary tract infection, site not specified; E28.2 Polycystic ovarian syndrome; E87.6 Hypokalemia; Z90.49 Acquired absence of other specified parts of digestive tract; Z68.21 Body mass index [BMI] 21.0-21.9, adult
CPT/HCPCS: 36415; 71045; 80048; 80053; 81000-TC; 83605; 83735-TC; 84703; 85025; 85610-TC; 85651-TC; 85730-TC; 86140; 87040-TC; 87081; 93005; 99285; J0696; J2270; J2405; J2930; J3480; J7030; J7060

== ENCOUNTER 2018-04-06 08:33 | Day surgery (SDC) | payer BC ==
[~2018-04-06] VITALS: Ht 162.6 cm; Wt 68.0 kg
[~2018-04-06 08:33] MED LIST changes: +ALPR0.25 PO; +BUDE6.9H INH; +CEFAZOLIN SOD 1 GM/ ISO 50 ML PREMIX IV ONE; +IRON1CAP27 PO; +LIALDA; +ONDA4TAB22 PO; +RANI75TA19 PO; +TRAZ150T77 PO
[2018-04-06 08:57] LABS: HCG,QUAL RESULT NEGATIVE (NEGATIVE)
[2018-04-06 09:33] LABS: BILIRUBIN,URINE NEGATIVE (NEGATIVE); BLOOD, URINE NEGATIVE (NEGATIVE); CLARITY/URINE CLEAR (CLEAR); COLOR,URINE YELLOW (YELLOW); GLUCOSE,URINE NEGATIVE (NEGATIVE); KETONES,URINE NEGATIVE (NEGATIVE); LEUKOCYTE ESTERASE ,URINE NEGATIVE (NEGATIVE); NITRITE, URINE NEGATIVE (NEGATIVE); PROTEIN URINE NEGATIVE (NEGATIVE); UROBILINOGEN,URINE 0.2 (0.2-1.0)
[2018-04-06 10:10] LABS: HEMATOCRIT 36.6 % (36-48); HEMOGLOBIN 12.2 g/dL (12.0-16.0); MEAN CORPUSCULAR HEMOGLOBIN 35 pg (27-31); MEAN CORPUSCULAR HGB CONC 33 % (32-36); MEAN CORPUSCULAR VOLUME 105 fL (79.0-98.0); PLATELET COUNT (AUTO) 321 K/uL (130-430); RED BLOOD CELL COUNT(AUTO) 3.47 MIL/uL (4.2-6.2); RED CELL DISTRIBUTION WIDTH 18.1 % (9.0-15.0)
[2018-04-06 10:20] LABS: WHITE BLOOD COUNT (AUTO) 4.7 K/uL (4.8-10.8)
[2018-04-06 11:51] LABS: ATYPICAL LYMPHOCYTES % 0 % (0-0); BAND % (MANUAL) 1 % (0-6); BASOPHILS % (MANUAL) 0 % (0-2); EOSINOPHILS % (MANUAL) 2 % (0-7); LYMPHOCYTES % (MANUAL) 54 % (20-46); MONOCYTES % (MANUAL) 4 % (0-11)
[2018-04-06] MEDS ORDERED: ONDANSETRON HCL 4 MG/2 ML VIAL IVP PRN (12:30)
[2018-04-06] MEDS ORDERED: HYDROcodone/ACETAMIN 5-325 MG TAB (NORCO/ VICODIN) PO PRN (12:30)
[2018-04-06] MEDS ORDERED: OXYCODONE/ACETAMINOPHEN 5-325 TABLET PO PRN ×2 (12:30)
[2018-04-06] MEDS ORDERED: LR 1,000 ML IV SCH (12:39)
[2018-04-06] MEDS ORDERED: ROCURONIUM BROMIDE 10 MG/ML (ZEMURON) ONE (12:40)
[2018-04-06] MEDS ORDERED: SEVOFLURANE 15 MIN GAS INH ONE (12:40)
[2018-04-06] MEDS ORDERED: PHENYLEPHRINE HCL 10 MG/ML VIAL (NEOSYNEPHRINE) ONE (12:40)
[2018-04-06] MEDS ORDERED: PROPOFOL 200MG/ 20ML VIAL (DIPRIVAN) IV ONE (12:40)
[2018-04-06] MEDS ORDERED: GLYCOPYRROLATE 0.2 MG/ML VIAL ONE (12:40)
[2018-04-06] MEDS ORDERED: MIDAZOLAM HCL 5 MG/ML VIAL (VERSED) IV ONE (12:40)
[2018-04-06] MEDS ORDERED: ROPIVACAINE 0.2% (NAROPIN) PF SOLUTION 100 ML BOTTLE ONE (12:40)
[2018-04-06] MEDS ORDERED: BUPIVACAINE /PF 0.5% 30 ML VIAL ONE (12:40)
[2018-04-06] MEDS ORDERED: NEOSTIGMINE METHYLSULFATE 1 MG/ML, 10 ML VIAL ONE (12:40)
[2018-04-06] MEDS ORDERED: fentaNYL CITRATE 250 MCG/5 ML AMP ONE (12:40)
[2018-04-06] MEDS ORDERED: LR 1,000 ML IV.SOLN IV ONE (12:40)
[2018-04-06] MEDS ORDERED: ONDANSETRON HCL 4 MG/2 ML VIAL ONE (12:40)
[2018-04-06] MEDS ORDERED: HYDROmorphone 2 MG/ML VIAL IVP PRN (12:45)
[2018-04-06] MEDS ORDERED: METOCLOPRAMIDE HCL 10 MG/2 ML VIAL IVP PRN (12:45)
[2018-04-06] MEDS ORDERED: HYDROmorphone 1 MG INJ. 1 MG/ML AMPUL IVP PRN ×2 (12:45)
[2018-04-06] MEDS ORDERED: HYDROmorphone 2 MG/ML VIAL ONE (12:53)
[2018-04-06] MEDS ORDERED: SIMETHICONE 80 MG TAB.CHEW PO SCH (13:00)
[2018-04-06 14:11] VITALS: BP_SYST 125
[2018-04-06] MEDS ORDERED: OXYCODONE/ACETAMINOPHEN 5-325 TABLET ONE (14:56)
== END 2018-04-06 17:00 | disposition home or self-care (01) ==
LOC: SDS 08:33 → SMU 08:33 → SDS 17:00
PROVIDERS: ATTEND Specialist
DX: N80.9 Endometriosis, unspecified (principal); Z90.49 Acquired absence of other specified parts of digestive tract; Z98.890 Other specified postprocedural states; J45.909 Unspecified asthma, uncomplicated; Z88.8 Allergy status to other drugs, medicaments and biological substances; E66.3 Overweight; K50.90 Crohn's disease, unspecified, without complications
CPT/HCPCS: 11981; 36415; 81003; 84703; 85007; 85027; C1727; J0690; J1170; J2250; J2370; J2405; J2704; J2710; J2795; J3010; J3490 ×2; J7120

== ENCOUNTER 2018-12-18 21:49 | Emergency (ER) | payer BC ==
[~2018-12-18] VITALS: Ht 162.6 cm; Wt 59.0 kg
[~2018-12-18 21:49] MED LIST changes: -CEFAZOLIN SOD 1 GM/ ISO 50 ML PREMIX IV ONE; -TRAZ-126 PO; +TRAZ-219 PO
[2018-12-18 22:18] VITALS: BP_SYST 105
--- NOTE | 2018-12-18 22:24 | NUR ---
Patient triaged and placed in waiting room. VSS and patient appears in no acute distress at this time. Accompanied by family, awaiting available bed, and MD notified of need for MSE.
--- NOTE | 2018-12-18 23:08 | NUR ---
Pt c/o clogged PICC line to RUE since last night. 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 Pt with hx of Ulcerative Colitis.
--- NOTE | 2018-12-18 23:08 | NUR ---
Patient to ER bed 7 to gown for evaluation. Side rails up. Report given to JUAN Mcnamara.
--- NOTE | 2018-12-19 00:07 | NUR ---
ER Dr. Serna at bedside examining patient.
--- NOTE | 2018-12-19 00:20 | NUR ---
Resistance noted to PICC line with flush attempt. Multiple attempts to aspirate blood was successful in clearing line. Good blood return noted, easy NS flush. Dr. Serna notified.
[2018-12-19 01:05] VITALS: BP_SYST 112
--- NOTE | 2018-12-19 01:05 | NUR ---
Patient given written and verbal discharge instructions and verbalizes understanding. ER MD discussed with patient the results and treatment provided. Patient in stable condition. ID arm band removed. Patient educated on pain management and to follow up with PMD. Pain Scale 0/10. Opportunity for questions provided and answered. Medication side effect fact sheet provided.
== END 2018-12-19 01:05 | disposition home or self-care (01) ==
LOC: SED 21:49
DX: T82.898A Other specified complication of vascular prosthetic devices, implants and grafts, initial encounter (principal)
CPT/HCPCS: 99285

== ENCOUNTER 2019-01-22 | Inpatient (IN) | payer BC ==
[~2019-01-22] VITALS: Ht 162.6 cm; Wt 68.9 kg
[2019-01-22 00:09] VITALS: BP_SYST 113
--- NOTE | 2019-01-22 00:20 | NUR ---
Pt placed to ER bed 02, to caitlin, report given to JUAN Angelo.
--- NOTE | 2019-01-22 00:30 | NUR ---
#18 GA PICC to RUE, secure with biopatch and transparent dsg, in place DATABASES COMPUTER CONSULTANT. Blood return noted, easy NS flush. 10 mL blood waste followed by Blood blood draw for lab. Flushed with 10 cc of normal saline. No evidence of infiltration noted.
--- NOTE | 2019-01-22 00:40 | NUR ---
Dr. Grimes bedside for Pt eval
[2019-01-22] MEDS ORDERED: MORPHINE 2 MG/ML INJ. SYRINGE IVP ONE (00:45)
[2019-01-22] MEDS ORDERED: NACL 0.9% 1,000 ML IV ONE (00:45)
[2019-01-22] MEDS ORDERED: ONDANSETRON HCL 4 MG/2 ML VIAL IVP ONE (00:45)
--- NOTE | 2019-01-22 00:50 | NUR ---
Pt BIB parents to ED C/O right flank pain starting 2 hours ago. Pt denies any fevers or chills. She has nausea with pain to the right flank radiating to the right mid gastric area. Pt states she has a history of kidney stones. She states this feels like a kidney stone. She has pain with urination but no burning. She also had a colostomy bag in the right lower quadrant that has been reanastomosed to the anus. Patient has also a history of ulcerative colitis and endometriosis. No other injuries and or complaints noted. VSS no s/s of acute distress. Resting on gurney with rails up
[2019-01-22 01:08] LABS: BILIRUBIN,URINE NEGATIVE (NEGATIVE); BLOOD, URINE NEGATIVE (NEGATIVE); CLARITY/URINE CLEAR (CLEAR); COLOR,URINE YELLOW (YELLOW); GLUCOSE,URINE NEGATIVE (NEGATIVE); KETONES,URINE NEGATIVE (NEGATIVE); LEUKOCYTE ESTERASE ,URINE TRACE (NEGATIVE); NITRITE, URINE NEGATIVE (NEGATIVE); PH,URINE 6.5 (5.0-8.0); PROTEIN URINE NEGATIVE (NEGATIVE); UROBILINOGEN,URINE 0.2 (0.2-1.0)
[2019-01-22 01:12] LABS: BASOPHILS % (AUTO) 0.3 % (0.0-2.0); EOSINOPHILS # (AUTO) 0.1 K/uL (0.0-0.4); EOSINOPHILS % (AUTO) 0.4 % (0.0-4.0); HEMATOCRIT 28.3 % (36-48); HEMOGLOBIN 9.4 g/dL (12.0-16.0); LYMPHOCYTES % (AUTO) 11.4 % (20.5-51.5); MEAN CORPUSCULAR HEMOGLOBIN 33 pg (27-31); MEAN CORPUSCULAR HGB CONC 33 % (32-36); MEAN CORPUSCULAR VOLUME 100 fL (79.0-98.0); MONOCYTES # (AUTO) 0.9 K/uL (0.0-1.0); MONOCYTES % (AUTO) 4.9 % (1.7-9.3); NEUTROPHILS # (AUTO) 14.5 K/uL (1.8-7.7); PLATELET COUNT (AUTO) 333 K/uL (130-430); RED BLOOD CELL COUNT(AUTO) 2.84 MIL/uL (4.2-6.2); RED CELL DISTRIBUTION WIDTH 13.6 % (9.0-15.0); WHITE BLOOD COUNT (AUTO) 17.5 K/uL (4.8-10.8)
[2019-01-22 01:13] LABS: BACTERIA,URINE RARE /HPF (None Seen); RBC,URINE 0-3 /HPF (0-3)
[2019-01-22 01:25] LABS: CALCIUM 8.2 mg/dL (8.4-11.0); CREATININE 0.75 mg/dL (0.55-1.30); POTASSIUM 3.8 mmol/L (3.5-5.1)
[2019-01-22 01:27] LABS: PROTHROMBIN TIME 9.9 SECS (9.5-12.5)
--- NOTE | 2019-01-22 01:30 | NUR ---
VVS no S/S of acute distress. Resting on gurney with rails up
[2019-01-22 01:31] LABS: TOTAL BILIRUBIN 0.1 mg/dL (0.0-1.0)
[2019-01-22] MEDS ORDERED: ONDANSETRON HCL 4 MG/2 ML VIAL IVP PRN (02:15)
--- NOTE | 2019-01-22 02:51 | NUR ---
Patient will be admitted to care of Dr. Anton. Admitted to Med Surg unit. Will go to room 123B. Belongings list completed. Summary report printed. Report will be given at bedside.
--- NOTE | 2019-01-22 02:51 | NUR ---
ADMIT NOTE Received pt from ER to the floor with a diagnosis of pyelonephritis. Admission process initiated. patient oriented to pain management, safety and call light-teach back done.
--- NOTE | 2019-01-22 03:00 | NUR ---
INITIAL NOTE AT INITIAL ASSESSMENT, PATIENT IS RESTING IN BED, STABLE, NO SIGNS OF RESPIRATORY DISTRESS. FAMILY IS AT BEDSIDE. PLAN OF CARE FOR THE EVENING IS COMMUNICATED WITH THE PATIENT AND HER FAMILY. PATIENT DEMONSTRATES CORRECT USAGE OF CALL LIGHT AT THIS TIME. BED IS LOCKED, ALARMED, AND AT THE LOWEST LEVEL. FALL AND SAFETY PRECAUTIONS WILL BE TAKEN THROUGHOUT THE SHIFT.
[2019-01-22 03:06] VITALS: BP_SYST 99
[2019-01-22] MEDS: HYDROmorphone 1 MG INJ. 1 MG/ML AMPUL IVP PRN ×5 (03:45→20:27)
[2019-01-22] MEDS: KCL 20 mEq in D5/0.45NS 1000mL 1,000 ML IV SCH ×2 (03:45→15:47)
[2019-01-22] MEDS ORDERED: PIPERACILLIN/TAZOBACTAM 3.375 GM/VIAL (ZOSYN) IV ONE (03:49)
[2019-01-22] MEDS ORDERED: KCL 20 mEq in D5/0.45NS 1000mL 1,000 ML IV ONE (03:50)
--- NOTE | 2019-01-22 04:30 | NUR ---
WOUND CARE WOUND CARE PERFORMED AT THIS TIME. PATIENT WAS PRE-MEDICATED; SHE TOLERATED THE WOUND CARE WELL.
--- NOTE | 2019-01-22 05:30 | NUR ---
COMMUNICATION W/ DR. SANDOVAL. DR. SANDOVAL PAGED AT THIS TIME, HE HAS GIVEN PERMISSION TO ACCESS PATIENT'S PICC LINE. ORDER READ BACK, VERIFIED, AND ENTERED.
--- NOTE | 2019-01-22 05:38 | NUR ---
PICC LINE DRESSING CHANGE PICC LINE DRESSING CHANGE COMPLETED AT THIS TIME USING STERILE TECHNIQUE. PATIENT TOLERATED WELL.
[2019-01-22] MEDS: PIPERACILLIN/TAZO 3.375 GM in NS 50 ML IV SCH ×3 (06:28→17:27)
--- NOTE | 2019-01-22 06:45 | NUR ---
CLOSING NOTE AT THIS TIME, PATIENT IS RESTING IN BED, STABLE, NO SIGNS OF RESPIRATORY DISTRESS. CALL LIGHT IS WITHIN REACH. BED IS LOCKED, ALARMED, AND AT THE LOWEST LEVEL. FALL AND SAFETY PRECAUTIONS HAVE BEEN IN PLACE THROUGHOUT THE SHIFT. WILL CONTINUE TO MONITOR UNTIL SHIFT REPORT IS GIVEN AT BEDSIDE TO AM NURSE.
[2019-01-22 08:00] VITALS: BP_SYST 108
--- NOTE | 2019-01-22 08:00 | NUR ---
ASSUMPTION OF CARE: RECEIVED PT A/A/OX4, DX:IMPAIRED URINARY ELIMINATION, R/T PYELONEPHRITIS. VSS, NO S/S OF DISTRESS, CURRENT C/O PAIN TO ABD 7/10 VIA NUMERIC SCALE, COLOR IS PALE, SKIN WARM, DRY TO TOUCH, HAS SMALL 2X2 ABD DRSG TO POST SURGICAL REVERSAL OF COLOSTOMY, STATED PROCEDURE WAS 2 WEEKS AGO, NO DRAINAGE OR FOUL ODOR NOTED, JAYLENE PICC, SINGLE LUMEN WITH CLEAN DRY, DRSG IN PLACE, INTACT, PATENT, NO REDNESS OR SWELLING, DRSG CHANGE DUE IN 7 DAYS FROM TODAY, ORIENTED TO UNIT, CALL LIGHT PLACED WITHIN REACH, WILL CON'T TO MONITOR AND ASSESS.
--- NOTE | 2019-01-22 08:00 | NUR ---
PAIN: PT C/O PAIN INCREASING TO 8-9/10 VIA NUMERIC SCALE, MED GIVEN, PER ORDERED BY Martin, DILAUDID 1MG IVP GIVEN, TOLERATED WELL, WILL CON'T TO MONITOR AND ASSESS.
[2019-01-22 12:00] VITALS: BP_SYST 116
--- NOTE | 2019-01-22 12:50 | NUR ---
VISIT: AT BEDSIDE FOR ASSESSMENT OF PT, DISCUSSED PLAN OF CARE, PT VERBALIZES UNDERSTANDING, NEW ORDERS ENTERED, WILL CON'T TO MONITOR AND ASSESS.
[2019-01-22] MEDS ORDERED: DIPHENOXYLATE HCL/ATROP SULF 2.5 MG TAB PO PRN (13:00)
[2019-01-22] MEDS ORDERED: traMADol HCL HCL 50 MG TABLET (ULTRAM) PO PRN ×2 (13:00)
--- NOTE | 2019-01-22 14:00 | NUR ---
NURSES NOTES: PT RESTING IN POSITION OF COMFORT, IN AND OUT OF SLEEP, NO C/O PAIN AT THIS TIME, NO S/S OF DISTRESS, CALL LIGHT PLACED WITHIN REACH, WILL CON'T TO MONITOR AND ASSESS.
[2019-01-22] MEDS ORDERED: SUCRALFATE 1 GM TABLET PO SCH (15:00)
[2019-01-22] MEDS: SUCRALFATE 1 GM TABLET PO SCH ×2 (15:03→20:28)
[2019-01-22 16:00] VITALS: BP_SYST 114
--- NOTE | 2019-01-22 18:00 | NUR ---
END OF SHIFT: PT RESTING IN POSITION OF COMFORT, NO C/O PAIN, MEDS EFFECTIVE, NEEDS MET, CALL LIGHT PLACED WITHIN REACH, WILL CON'T WITH PLAN OF CARE, WILL ENDORSE TO SUBMARINE CABLE EQUIPMENT TECHNICIAN NURSE.
[2019-01-22 19:50] VITALS: BP_SYST 111
--- NOTE | 2019-01-22 19:55 | NUR ---
INITIAL NOTE AT INITIAL ASSESSMENT, PATIENT IS RESTING IN BED, STABLE, NO SIGNS OF RESPIRATORY DISTRESS. PRN MEDICATION FOR PATENT'S PAIN COMPLAINT WILL BE GIVEN AT THIS TIME. FAMILY IS AT BEDSIDE. PLAN OF CARE FOR THE EVENING IS COMMUNICATED WITH THE PATIENT AND HER FAMILY. PATIENT DEMONSTRATES CORRECT USAGE OF CALL LIGHT AT THIS TIME. BED IS LOCKED, ALARMED, AND AT THE LOWEST LEVEL. FALL AND SAFETY PRECAUTIONS WILL BE TAKEN THROUGHOUT THE SHIFT.
[2019-01-22] MEDS: TOPIRAMATE 25 MG TABLET(TOPAMAX) PO SCH (20:26)
[2019-01-22] MEDS: DOCUSATE SODIUM 100 MG CAPSULE PO SCH (20:27)
[2019-01-22] MEDS: traZODone HCL 50 MG TABLET (DESYREL) PO SCH (20:28)
[2019-01-22] MEDS: FERROUS SULFATE 140 MG TABLET.ER PO SCH (20:33)
[2019-01-22] MEDS: PANTOPRAZOLE SODIUM 40 MG/VIAL (PROTONIX) IVP SCH (20:34)
[2019-01-22] MEDS: ALPRAZolam 0.25 MG TABLET PO SCH (20:34)
[2019-01-22] MEDS: ALBUTEROL SULFATE 0.083% 2.5 MG/3 ML VIAL.NEB INH SCH (21:06)
[2019-01-22] MEDS: BUDESONIDE 0.5 MG/2 ML AMPUL.NEB INH SCH (21:20)
--- NOTE | 2019-01-22 21:50 | NUR ---
NOTE SCHEDULED NIGHT TIME MEDICATIONS ARE GIVEN AT THIS TIME. PATIENT IS RESTING IN BED, STABLE, NO SIGNS OF RESPIRATORY DISTRESS. CALL LIGHT IS WITHIN REACH. BED IS LOCKED, ALARMED, AND AT THE LOWEST LEVEL.
--- NOTE | 2019-01-22 23:00 | NUR ---
NPO STATUS PATIENT IS NOW PLACED ON NPO STATUS FOR SCHEDULED AM ABDOMINAL ULTRASOUND. PATIENT VERBALIZES UNDERSTANDING. HER FOOD AND DRINKS HAVE BEEN CLEARED FROM BEDSIDE TABLE AND REPLACED WITH NPO CONE FOR REMINDER.
--- NOTE | 2019-01-22 23:50 | NUR ---
WOUND CARE WOUND CARE PERFORMED AT THIS TIME. PATIENT WAS PRE-MEDICATED; SHE TOLERATED THE WOUND CARE WELL.
[2019-01-23 00:23] VITALS: BP_SYST 105
[2019-01-23] MEDS: SUCRALFATE 1 GM TABLET PO SCH ×7 (00:46→22:24)
[2019-01-23] MEDS: PIPERACILLIN/TAZO 3.375 GM in NS 50 ML IV SCH ×5 (00:46→23:32)
[2019-01-23] MEDS: HYDROmorphone 1 MG INJ. 1 MG/ML AMPUL IVP PRN ×6 (00:47→22:24)
--- NOTE | 2019-01-23 01:50 | NUR ---
NOTE PATIENT IS SLEEPING, STABLE, NO SIGNS OF RESPIRATORY DISTRESS. CALL LIGHT IS WITHIN REACH. BED IS LOCKED, ALARMED, AND AT THE LOWEST LEVEL.
[2019-01-23] MEDS: KCL 20 mEq in D5/0.45NS 1000mL 1,000 ML IV SCH ×2 (03:20→18:07)
--- NOTE | 2019-01-23 03:50 | NUR ---
NOTE PATIENT IS SLEEPING, STABLE, NO SIGNS OF RESPIRATORY DISTRESS. CALL LIGHT IS WITHIN REACH. BED IS LOCKED, ALARMED, AND AT THE LOWEST LEVEL.
--- NOTE | 2019-01-23 05:45 | NUR ---
NOTE PATIENT IS SLEEPING, STABLE, NO SIGNS OF RESPIRATORY DISTRESS. CALL LIGHT IS WITHIN REACH. BED IS LOCKED, ALARMED, AND AT THE LOWEST LEVEL.
[2019-01-23 06:21] LABS: BASOPHILS % (AUTO) 0.3 % (0.0-2.0); EOSINOPHILS % (AUTO) 0.4 % (0.0-4.0); HEMATOCRIT 27.1 % (36-48); HEMOGLOBIN 9.1 g/dL (12.0-16.0); LYMPHOCYTES # (AUTO) 1.1 K/uL (1.0-5.5); LYMPHOCYTES % (AUTO) 16.2 % (20.5-51.5); MEAN CORPUSCULAR HEMOGLOBIN 33 pg (27-31); MEAN CORPUSCULAR HGB CONC 34 % (32-36); MEAN CORPUSCULAR VOLUME 100 fL (79.0-98.0); MONOCYTES # (AUTO) 0.8 K/uL (0.0-1.0); MONOCYTES % (AUTO) 11.1 % (1.7-9.3); PLATELET COUNT (AUTO) 269 K/uL (130-430); RED BLOOD CELL COUNT(AUTO) 2.72 MIL/uL (4.2-6.2); RED CELL DISTRIBUTION WIDTH 13.5 % (9.0-15.0)
[2019-01-23 07:35] LABS: WHITE BLOOD COUNT (AUTO) 6.9 K/uL (4.8-10.8)
[2019-01-23] MEDS: BUDESONIDE 0.5 MG/2 ML AMPUL.NEB INH SCH ×2 (07:37→21:58)
[2019-01-23] MEDS: ALBUTEROL SULFATE 0.083% 2.5 MG/3 ML VIAL.NEB INH SCH ×2 (07:37→21:58)
[2019-01-23 08:00] VITALS: BP_SYST 96
--- NOTE | 2019-01-23 08:00 | NUR ---
initial notes rec patient awake alert with hob elevated. resp easy and unlabored. no sob noted. c/o bearable pain at this time 3. bed to the lowest position and side rails up and locked. call light within reached and knows when to call for assistance. abd dressing on the r lower quadrant intact. no bleeding noted. will continue to monitor patient.
[2019-01-23] MEDS: DOCUSATE SODIUM 100 MG CAPSULE PO SCH ×2 (09:00→20:52)
[2019-01-23] MEDS ORDERED: BUDESONIDE 9 MG PO SCH (09:00)
[2019-01-23] MEDS: PANTOPRAZOLE SODIUM 40 MG/VIAL (PROTONIX) IVP SCH ×2 (09:26→20:49)
[2019-01-23] MEDS: traZODone HCL 50 MG TABLET (DESYREL) PO SCH ×2 (09:27→20:50)
[2019-01-23] MEDS: FERROUS SULFATE 140 MG TABLET.ER PO SCH ×2 (09:27→20:50)
[2019-01-23] MEDS: ALPRAZolam 0.25 MG TABLET PO SCH ×2 (09:28→20:52)
[2019-01-23] MEDS: TOPIRAMATE 25 MG TABLET(TOPAMAX) PO SCH ×3 (09:29→20:50)
[2019-01-23] MEDS: MULTIVITAMINS TAB 1 TABLET PO SCH (09:29)
[2019-01-23] MEDS: TRINTELLIX 20 MG TAB PO SCH (09:29)
[2019-01-23] MEDS: VENLAFAXINE HCL 75 MG TABLET PO SCH ×3 (09:30→20:51)
--- NOTE | 2019-01-23 10:40 | NUR ---
rounds pt assisted and ambulated to the br and gatito well. had an episode of vomiting small amount of greenish vomitus. keep patient dry and clean. no sob noted.
[2019-01-23 11:19] VITALS: BP_SYST 108
--- NOTE | 2019-01-23 13:00 | NUR ---
rounds seen by dr olvera at bedside. no sob noted.
--- NOTE | 2019-01-23 13:54 | NUR ---
CONSULTATION: REASON FOR CONSULT: DEPRESSION CONSULTING PHYSICIAN: MITZI JC MD ORDERED BY: SANG VANEGAS MD SPOKE WITH JOHN [phone]
--- NOTE | 2019-01-23 14:06 | NUR ---
CONSULTATION: REASON FOR CONSULT: ABDOMINAL PAIN CONSULTING PHYSICIAN: SARA MCDANIELS MD ORDERED BY: LAURA VANEGAS MD SPOKE WITH [facility] [phone]
--- NOTE | 2019-01-23 14:22 | NUR ---
Home TPN per debbie Nguyễn to resume TPN. Patient has TPN at home. Informed primary nurse
[2019-01-23 15:07] VITALS: BP_SYST 105
--- NOTE | 2019-01-23 16:22 | NUR ---
rounds due meds given. resting comfortably at this time. no sob noted. call light within reached.
[2019-01-23] MEDS ORDERED: GASTROGRAFIN 120 ML ONE (19:16)
--- NOTE | 2019-01-23 19:54 | NUR ---
OPENING NOTES Pt not in room at this time, pt at radiology room for small bowel follow through.
--- NOTE | 2019-01-23 20:30 | NUR ---
BACK TO ROOM Pt is back to room, AAOx4, lying in bed and reconnected IVF of D5,0.45NS with 20mEq of KCL at 75ml/hr and infusing well on right upper arm PICC. No signs of acute distress or SOB noted. Encouraged to use call light when needed. Family at bedside. Safety precautions in place with 2 side rails up, wheels locked, bed in lowest position. Call light with pt. Will continue to monitor.
[2019-01-23 20:44] VITALS: BP_SYST 115
[2019-01-23 22:22] VITALS: BP_SYST 120
--- NOTE | 2019-01-23 22:24 | NUR ---
PAIN MED Pt complained of right sided abdominal pain with a scale of 10/10. Vital signs taken and recorded. Dilaudid 1mg IVP given as ordered. Educated pt on safety and side effects like dizziness, pt verbalized understanding. No signs of acute distress noted. IVF infusing well. Safety precautions in place and call light with pt. Will continue to monitor.
--- NOTE | 2019-01-24 01:30 | NUR ---
ROUNDS Pt is resting in bed with both eyes closed, with visible chest rise and fall with non-labored breathing noted. No complains of pain and no signs of acute distress noted. IVF infusing well. Safety precautions in place and call light with pt. Will continue to monitor.
[2019-01-24 02:30] VITALS: BP_SYST 102
[2019-01-24] MEDS: SUCRALFATE 1 GM TABLET PO SCH ×3 (02:32→12:18)
[2019-01-24] MEDS: HYDROmorphone 1 MG INJ. 1 MG/ML AMPUL IVP PRN ×3 (02:33→10:36)
--- NOTE | 2019-01-24 02:33 | NUR ---
PAIN MED Pt complained of right sided abdominal pain with a scale of 10/10. Vital signs taken and recorded. Dilaudid 1mg IVP given as ordered. Encouraged position of comfort. No signs of acute distress noted. IVF infusing well. Safety precautions in place and call light with pt. Will continue to monitor.
[2019-01-24] MEDS: PIPERACILLIN/TAZO 3.375 GM in NS 50 ML IV SCH ×2 (05:03→12:18)
[2019-01-24 06:00] LABS: CALCIUM 9.4 mg/dL (8.4-11.0); CREATININE 0.94 mg/dL (0.55-1.30); POTASSIUM 3.7 mmol/L (3.5-5.1)
[2019-01-24 06:23] LABS: BASOPHILS % (AUTO) 0.2 % (0.0-2.0); EOSINOPHILS % (AUTO) 0.6 % (0.0-4.0); HEMATOCRIT 31.5 % (36-48); HEMOGLOBIN 10.7 g/dL (12.0-16.0); LYMPHOCYTES # (AUTO) 1.2 K/uL (1.0-5.5); LYMPHOCYTES % (AUTO) 14.8 % (20.5-51.5); MEAN CORPUSCULAR HEMOGLOBIN 34 pg (27-31); MEAN CORPUSCULAR HGB CONC 34 % (32-36); MEAN CORPUSCULAR VOLUME 100 fL (79.0-98.0); MONOCYTES # (AUTO) 0.6 K/uL (0.0-1.0); MONOCYTES % (AUTO) 6.9 % (1.7-9.3); NEUTROPHILS # (AUTO) 6.4 K/uL (1.8-7.7); NEUTROPHILS % (AUTO) 77.5 % (40.0-70.0); PLATELET COUNT (AUTO) 308 K/uL (130-430); RED BLOOD CELL COUNT(AUTO) 3.16 MIL/uL (4.2-6.2); RED CELL DISTRIBUTION WIDTH 13.1 % (9.0-15.0); WHITE BLOOD COUNT (AUTO) 8.2 K/uL (4.8-10.8)
[2019-01-24 06:32] VITALS: BP_SYST 106
--- NOTE | 2019-01-24 06:37 | NUR ---
PAIN MED Pt complained of right sided abdominal pain with a scale of 10/10. Vital signs taken and recorded. Dilaudid 1mg IVP given as ordered. Educated pt on side effects like constipation if prolong use of the pain med, pt verbalized understanding. No signs of acute distress noted. IVF infusing well. Safety precautions in place and call light with pt. Will continue to monitor.
--- NOTE | 2019-01-24 07:07 | NUR ---
CLOSING NOTES Pt is resting in bed with both eyes closed, with visible chest rise and fall with non-labored breathing noted. No complains of pain at this time. No signs of acute distress or SOB noted. IVF infusing well. All needs attended throughout the shift. Safety precautions maintained with 2 side rails up, wheels locked, bed alarm on and in lowest level. Call light with pt. Will endorse to day shift nurse.
[2019-01-24] MEDS: ALBUTEROL SULFATE 0.083% 2.5 MG/3 ML VIAL.NEB INH SCH (07:12)
[2019-01-24] MEDS: BUDESONIDE 0.5 MG/2 ML AMPUL.NEB INH SCH (07:12)
--- NOTE | 2019-01-24 08:00 | NUR ---
initial notes rec patient asleep but arousable to stimuli. resp easy and unlabored and no sob noted. bed to the lowest position and side rails up and locked. call light within reached and knows when to call for for assistance. ambulates to the br with min assists and gatito well.will continue to monitor patient.
[2019-01-24] MEDS: DOCUSATE SODIUM 100 MG CAPSULE PO SCH (09:00)
--- NOTE | 2019-01-24 10:00 | NUR ---
rounds pt still refusing to take her meds stated will want to sleep more. call light withn reached and knows when to call for assistance.
[2019-01-24] MEDS: KCL 20 mEq in D5/0.45NS 1000mL 1,000 ML IV SCH (10:39)
[2019-01-24] MEDS: PANTOPRAZOLE SODIUM 40 MG/VIAL (PROTONIX) IVP SCH (10:41)
[2019-01-24] MEDS: ALPRAZolam 0.25 MG TABLET PO SCH (10:42)
[2019-01-24] MEDS: FERROUS SULFATE 140 MG TABLET.ER PO SCH (10:42)
[2019-01-24] MEDS: VENLAFAXINE HCL 75 MG TABLET PO SCH (10:42)
[2019-01-24] MEDS: MULTIVITAMINS TAB 1 TABLET PO SCH (10:43)
[2019-01-24] MEDS: traZODone HCL 50 MG TABLET (DESYREL) PO SCH (10:43)
[2019-01-24] MEDS: TOPIRAMATE 25 MG TABLET(TOPAMAX) PO SCH (10:44)
[2019-01-24 11:23] VITALS: BP_SYST 114
[2019-01-24] MEDS: TRINTELLIX 20 MG TAB PO SCH (12:20)
--- NOTE | 2019-01-24 14:00 | NUR ---
rounds seen by dr olvera at bedside and d/c the patient. informed patient and stated mom will be here at 1600 to pick her up. pt will be going home with her picc line and resumed her tpn at home.
--- NOTE | 2019-01-24 14:35 | NUR ---
WOUND EVALUATION: Late note for 01/24/19 at 1435 secondary to patient care, Wound Consult received from Dr. Anton. Thank you, Dr. Anton, for the consult. Patient received in a Iva Bed with an IsoFlex KIMMIE mattress, awake, alert, and oriented. Patient is able to turn and ambulate independently. Stan Score is a 19. Past Medical History: Ulcerative Colitis, Depression, status post recent Colostomy placement and revision a few weeks ago at [facility] (Subtotal Colectomy, Diverting Ileostomy and most recently an Ileoanal Anastomosis). Recent Labs: WBC 8.2, RBC 3.16, hemoglobin 10.7, hematocrit 31.5, BUN 4, creatinine 0.94, GFR 79, glucose 106, AST 39, ALT 85, albumin 3.0, PTT 23.7. Microbiology: Blood culture results 2 in progress. MRSA screen results negative. Urine culture results negative. Intrinsic factors that delay wound healing: Hypoalbuminemia. Extrinsic factors that delay wound healing: Decreased mobility. Wound Assessment: 1. Right lower abdomen: Healing Colostomy with recent Anastomosis and colostomy reversal, present on admission. Wound bed has 95% red tissue, 5% white tissue. No odor, no drainage. Jackie-wound intact. Measures 1.7 cm x 3.2 cm x 0.2 cm. Recommend: Cleanse wound with normal saline. Apply SurePrep to jackie-wound. Pack wound with 1/4 inch Iodoform packing strip. Cover with foam dressing. Perform wound care daily, and as needed for dressing soiling or dislodgement. Also recommend: Encourage patient for repositioning every 2 hours with pillow support and off-load pressure areas with pillows for pressure re-distribution. Perform skin care and monitor skin integrity Q shift.
[2019-01-24 15:25] VITALS: BP_SYST 101
--- NOTE | 2019-01-24 15:45 | NUR ---
DC PLANNING: SPOKE WITH LYNDSAY (PHARMACIST) @ [facility] @ [phone] F STATED PATIENT RECEIVES TPN AT HOME AND [facility] PROVIDES FOR THE TPN AND NURSE AT HOME FOR FOLLOW UP. LYNDSAY STATED PATIENT HAS BEEN ON THEIR SERVICE SINCE November, ( ALMOST 1 MONTH). PATIENT'S MOTHER IS TRAINED AT HOME. LYNDSAY ALSO STATED THEY WILL COORDINATE WITH THE PATIENT'S MOTHER UPON DISCHARGE. CM FAXED H&P, PROGRESS NOTE AND 24 HOUR REPORT TO LYNDSAY.
--- NOTE | 2019-01-24 15:52 | NUR ---
notes called dr spangler and informed home re going home with her piccline and continue her tpn once d/c. got a call from home health co and inquring re d/c home . no sob noted.
[2019-01-24 16:05] VITALS: BP_SYST 101
--- NOTE | 2019-01-24 16:50 | NUR ---
closing notes pt was d/c home accompanied by parents. went home with her picc line. id band was removed . d/c via wheelchair and stable. no sob noted. stable and needs attended. pt's mom stated will have an appt at [facility] in [place] and pmd is dr zapata.
== END 2019-01-24 16:50 | disposition home or self-care (01) | DRG 690 ==
LOC: SED → SMU 02:10
PROVIDERS: ADMIT Family Medicine; ATTEND Family Medicine
DX: N12 Tubulo-interstitial nephritis, not specified as acute or chronic (principal); F11.20 Opioid dependence, uncomplicated; F33.1 Major depressive disorder, recurrent, moderate; D64.9 Anemia, unspecified; J45.909 Unspecified asthma, uncomplicated; K21.9 Gastro-esophageal reflux disease without esophagitis; D72.829 Elevated white blood cell count, unspecified; F41.1 Generalized anxiety disorder; K56.41 Fecal impaction; Z93.3 Colostomy status; Z90.49 Acquired absence of other specified parts of digestive tract; Z91.040 Latex allergy status; Z91.018 Allergy to other foods; Z87.442 Personal history of urinary calculi; Z79.899 Other long term (current) drug therapy; Z90.89 Acquired absence of other organs
CPT/HCPCS: 36415; 71045; 74250-TC; 76700-TC; 80048; 80053; 81000-TC; 81025; 83605; 83735-TC; 85025; 85610-TC; 85730-TC; 87040-TC; 87081; 87086; 93005; 94640; 94760; 96361; 96374; 96375; 99285; C9113; J1170; J2270; J2405; J2543; J7030; J7613; J7626; Q9963

== ENCOUNTER 2019-05-03 13:52 | Emergency (ER) | payer BC ==
[~2019-05-03] VITALS: Ht 162.6 cm; Wt 59.0 kg
[~2019-05-03 13:52] MED LIST changes: -RANI75TA19 PO; +[UNRECOGNIZED DRUG - CODE] PO
[2019-05-03 14:03] VITALS: BP_SYST 152
--- NOTE | 2019-05-03 14:10 | NUR ---
Patient to ER bed 07 to gown for evaluation. Side rails up.
--- NOTE | 2019-05-03 14:20 | NUR ---
Pt AAOx4 ambulated into ED c/o 10/ suprapubic pain and 10 + episodes of vomiting possibly r/t endometriosis flare up x 2 days. Denies diarrhea/bloody emesis. No other injuries/complaints per pt/noted. Will continue to monitor.
--- NOTE | 2019-05-03 14:24 | NUR ---
ER Dr. Motley at bedside examining patient.
[2019-05-03] MEDS ORDERED: NACL 0.9% 1,000 ML IV ONE (14:25)
[2019-05-03] MEDS ORDERED: KETOROLAC TROMETHAMINE 30 MG VIAL IVP ONE (14:30)
[2019-05-03 14:43] LABS: BASOPHILS # (AUTO) 0.1 K/uL (0.0-0.2); HEMATOCRIT 38.5 % (36-48); HEMOGLOBIN 12.8 g/dL (12.0-16.0); LYMPHOCYTES # (AUTO) 0.6 K/uL (1.0-5.5); LYMPHOCYTES % (AUTO) 8.7 % (20.5-51.5); MEAN CORPUSCULAR HEMOGLOBIN 30 pg (27-31); MEAN CORPUSCULAR HGB CONC 33 % (32-36); MEAN CORPUSCULAR VOLUME 90 fL (79.0-98.0); MONOCYTES # (AUTO) 0.3 K/uL (0.0-1.0); MONOCYTES % (AUTO) 4.7 % (1.7-9.3); NEUTROPHILS # (AUTO) 5.5 K/uL (1.8-7.7); NEUTROPHILS % (AUTO) 85.6 % (40.0-70.0); PLATELET COUNT (AUTO) 283 K/uL (130-430); RED BLOOD CELL COUNT(AUTO) 4.29 MIL/uL (4.2-6.2); RED CELL DISTRIBUTION WIDTH 15.8 % (9.0-15.0); WHITE BLOOD COUNT (AUTO) 6.4 K/uL (4.8-10.8)
[2019-05-03 15:03] LABS: CALCIUM 8.8 mg/dL (8.4-11.0); CREATININE 1.13 mg/dL (0.55-1.30); POTASSIUM 3.5 mmol/L (3.5-5.1)
[2019-05-03 15:08] LABS: ALBUMIN 3.9 g/dL (3.4-4.8); TOTAL BILIRUBIN 0.3 mg/dL (0.0-1.0)
[2019-05-03 15:11] LABS: BILIRUBIN,URINE 2+ (NEGATIVE); BLOOD, URINE NEGATIVE (NEGATIVE); CLARITY/URINE CLEAR (CLEAR); COLOR,URINE YELLOW (YELLOW); GLUCOSE,URINE NEGATIVE (NEGATIVE); KETONES,URINE 1+ (NEGATIVE); LEUKOCYTE ESTERASE ,URINE NEGATIVE (NEGATIVE); NITRITE, URINE NEGATIVE (NEGATIVE); PROTEIN URINE 2+ (NEGATIVE); UROBILINOGEN,URINE 0.2 (0.2-1.0)
--- NOTE | 2019-05-03 15:34 | NUR ---
Pt c/o continued 03/09 pain to suprapubic region s/p toradol adminstration. Dr. Motley notified.
--- NOTE | 2019-05-03 15:36 | NUR ---
Dr. Motley speaking with Dr. Hare regarding pt care.
[2019-05-03] MEDS ORDERED: MORPHINE 4 MG/ML INJ. SYRINGE IVP ONE (15:45)
--- NOTE | 2019-05-03 15:53 | NUR ---
4mg MS IVP given. Pt tolerated well. No adverse reactions noted.
[2019-05-03 16:20] LABS: BACTERIA,URINE FEW /HPF (None Seen); MUCUS,URINE 3+ /LPF (None Seen); RBC,URINE 0-3 /HPF (0-3); URINE AMORPHOUS URATE 1+ /HPF (None Seen)
[2019-05-03] MEDS ORDERED: MORPHINE 2 MG/ML INJ. SYRINGE IVP ONE (16:30)
--- NOTE | 2019-05-03 16:35 | NUR ---
2mg MS IVP administered. Pt immediately states "That morphine didn't doing anything for me." Dr. Motley notified and states pt must follow up with OBGYN. Dr. Hare aware of pt care in ED.
--- NOTE | 2019-05-03 16:47 | NUR ---
Pt requests compazine RX to hold down pain medication at home.
--- NOTE | 2019-05-03 16:55 | NUR ---
Patient given written and verbal discharge instructions and verbalizes understanding. ER MD Motley discussed with patient the results and treatment provided. Patient in stable condition. ID arm band removed. IV catheter removed intact and dressing applied, no active bleeding. Rx of Compazine 10mg BID amt: 12 given. Patient educated on pain management and to follow up with PMD. Pain Scale 2. Opportunity for questions provided and answered. Medication side effect fact sheet provided.
[2019-05-03 16:56] VITALS: BP_SYST 140
== END 2019-05-03 16:55 | disposition home or self-care (01) ==
LOC: SED 13:52
DX: A08.4 Viral intestinal infection, unspecified (principal); R11.2 Nausea with vomiting, unspecified; K21.9 Gastro-esophageal reflux disease without esophagitis; J45.909 Unspecified asthma, uncomplicated; N80.9 Endometriosis, unspecified; K58.9 Irritable bowel syndrome, unspecified; Z87.442 Personal history of urinary calculi; Z91.040 Latex allergy status; Z91.018 Allergy to other foods; Z79.899 Other long term (current) drug therapy; Z90.49 Acquired absence of other specified parts of digestive tract
CPT/HCPCS: 36415; 80053; 81000; 83690; 85025; 96361; 96374; 96375; 96376; 99283; J1885; J2270 ×2; J7030

== ENCOUNTER 2020-11-09 21:13 | Emergency (ER) | payer BC ==
[~2020-11-09] VITALS: Ht 162.6 cm; Wt 81.6 kg
[~2020-11-09 21:13] MED LIST changes: -DIPH-179 PO; +LOM2.5 PO; -TRAZ-219 PO; +TRAZ-251 PO
[2020-11-09 21:20] VITALS: BP_SYST 149
[2020-11-09] MEDS ORDERED: KETOROLAC TROMETHAMINE 30 MG VIAL IVP ONE (21:30)
[2020-11-09] MEDS ORDERED: NACL 0.9% 1,000 ML IV ONE (21:30)
[2020-11-09 21:47] LABS: BASOPHILS % (AUTO) 0.3 % (0.0-2.0); EOSINOPHILS # (AUTO) 0.1 K/uL (0.0-0.4); EOSINOPHILS % (AUTO) 0.9 % (0.0-4.0); HEMATOCRIT 39.7 % (36-48); HEMOGLOBIN 13.3 g/dL (12.0-16.0); LYMPHOCYTES # (AUTO) 1.5 K/uL (1.0-5.5); LYMPHOCYTES % (AUTO) 13.2 % (20.5-51.5); MEAN CORPUSCULAR HEMOGLOBIN 33 pg (27-31); MEAN CORPUSCULAR HGB CONC 34 % (32-36); MEAN CORPUSCULAR VOLUME 98 fL (79.0-98.0); MONOCYTES # (AUTO) 0.5 K/uL (0.0-1.0); MONOCYTES % (AUTO) 4.4 % (1.7-9.3); NEUTROPHILS # (AUTO) 9.2 K/uL (1.8-7.7); NEUTROPHILS % (AUTO) 81.2 % (40.0-70.0); PLATELET COUNT (AUTO) 283 K/uL (130-430); RED BLOOD CELL COUNT(AUTO) 4.05 MIL/uL (4.2-6.2); RED CELL DISTRIBUTION WIDTH 13.3 % (9.0-15.0); WHITE BLOOD COUNT (AUTO) 11.3 K/uL (4.8-10.8)
[2020-11-09 22:01] LABS: CALCIUM 9.2 mg/dL (8.4-11.0); CREATININE 0.95 mg/dL (0.55-1.30); POTASSIUM 4.1 mmol/L (3.5-5.1)
[2020-11-09 22:03] LABS: ALBUMIN 3.8 g/dL (3.4-4.8); TOTAL BILIRUBIN 0.3 mg/dL (0.0-1.0)
[2020-11-09] MEDS ORDERED: MORPHINE 2 MG/ML INJ. SYRINGE IVP ONE (23:00)
[2020-11-09] MEDS ORDERED: ONDANSETRON HCL 4 MG/2 ML VIAL ONE (23:04)
[2020-11-09] MEDS ORDERED: ONDANSETRON HCL 4 MG/2 ML VIAL IVP ONE (23:15)
[2020-11-09 23:30] VITALS: BP_SYST 149
== END 2020-11-09 23:30 | disposition home or self-care (01) ==
LOC: SED 21:13
DX: R10.2 Pelvic and perineal pain (principal); R11.2 Nausea with vomiting, unspecified; J45.909 Unspecified asthma, uncomplicated; K21.9 Gastro-esophageal reflux disease without esophagitis; Z79.899 Other long term (current) drug therapy; Z91.040 Latex allergy status; Z91.018 Allergy to other foods
CPT/HCPCS: 36415; 76830; 76857; 80053; 85025; 96361; 96374; 96375; 99284; J1885; J2270; J2405; J7030

== ENCOUNTER 2020-12-26 18:52 | Inpatient (IN) | payer BC, SELFPAY ==
[~2020-12-26] VITALS: Ht 162.6 cm; Wt 83.5 kg
[2020-12-26 19:14] VITALS: BP_SYST 130
[2020-12-26] MEDS ORDERED: KETOROLAC TROMETHAMINE 30 MG VIAL IM ONE (20:30)
[2020-12-26] MEDS ORDERED: NACL 0.9% 1,000 ML IV ONE (20:30)
[2020-12-26 21:08] LABS: BASOPHILS # (AUTO) 0.1 K/uL (0.0-0.2); BASOPHILS % (AUTO) 0.6 % (0.0-2.0); EOSINOPHILS # (AUTO) 0.1 K/uL (0.0-0.4); EOSINOPHILS % (AUTO) 0.9 % (0.0-4.0); HEMATOCRIT 38.7 % (36-48); HEMOGLOBIN 12.6 g/dL (12.0-16.0); LYMPHOCYTES # (AUTO) 2.4 K/uL (1.0-5.5); LYMPHOCYTES % (AUTO) 27.3 % (20.5-51.5); MEAN CORPUSCULAR HEMOGLOBIN 33 pg (27-31); MEAN CORPUSCULAR HGB CONC 33 % (32-36); MEAN CORPUSCULAR VOLUME 100 fL (79.0-98.0); MONOCYTES # (AUTO) 0.5 K/uL (0.0-1.0); NEUTROPHILS # (AUTO) 5.8 K/uL (1.8-7.7); NEUTROPHILS % (AUTO) 65.2 % (40.0-70.0); PLATELET COUNT (AUTO) 303 K/uL (130-430); RED BLOOD CELL COUNT(AUTO) 3.88 MIL/uL (4.2-6.2); RED CELL DISTRIBUTION WIDTH 14.6 % (9.0-15.0); WHITE BLOOD COUNT (AUTO) 8.8 K/uL (4.8-10.8)
[2020-12-26 21:37] LABS: CALCIUM 9.6 mg/dL (8.4-11.0); CREATININE 0.89 mg/dL (0.55-1.30); POTASSIUM 3.9 mmol/L (3.5-5.1)
[2020-12-26 21:43] LABS: ALBUMIN 3.7 g/dL (3.4-4.8); TOTAL BILIRUBIN 0.2 mg/dL (0.0-1.0)
[2020-12-26] MEDS ORDERED: LORazepam 2 MG/ML VIAL ONE (22:34)
[2020-12-26 22:49] LABS: BILIRUBIN,URINE NEGATIVE (NEGATIVE); BLOOD, URINE NEGATIVE (NEGATIVE); CLARITY/URINE CLEAR (CLEAR); COLOR,URINE YELLOW (YELLOW); GLUCOSE,URINE NEGATIVE (NEGATIVE); KETONES,URINE NEGATIVE (NEGATIVE); LEUKOCYTE ESTERASE ,URINE NEGATIVE (NEGATIVE); NITRITE, URINE NEGATIVE (NEGATIVE); PH,URINE 6.5 (5.0-8.0); PROTEIN URINE NEGATIVE (NEGATIVE); UROBILINOGEN,URINE 0.2 (0.2-1.0)
[2020-12-26 23:07] LABS: BARBITURATE, URINE NEGATIVE (NEG <=200); BENZODIAZEPINE, URINE POSITIVE (NEG <=150); CANNABINOID, URINE NEGATIVE (NEG <=50); COCAINE, URINE NEGATIVE (NEG <=150); METHAMPHETAMINES SCREEN,URINE NEGATIVE (NEG <=500); OPIATE, URINE NEGATIVE (NEG <=100); PHENCYCLIDINE SCREEN,URINE NEGATIVE (NEG <=25); UR TRICYCLIC ANTIDEPRESSANTS NEGATIVE (NEG <=300); URINE AMPHETAMINE NEGATIVE (NEG <=500); URINE METHADONE NEGATIVE (NEG <=200); URINE OXYCODONE SCREEN NEGATIVE (NEG <=100); URINE PROPOXYPHENE SCREEN NEGATIVE (NEG <=300)
[2020-12-26] MEDS ORDERED: LITH600C PO (23:35)
[2020-12-26] MEDS ORDERED: GABA800T PO (23:35)
[2020-12-26] MEDS ORDERED: PROC10TA13 PO (23:35)
[2020-12-26] MEDS ORDERED: CARI4.5C PO (23:40)
[2020-12-26] MEDS ORDERED: ELAG150T PO (23:40)
[2020-12-26] MEDS ORDERED: DROS4TAB PO (23:40)
[2020-12-26] MEDS ORDERED: ALPR1TAB2 PO (23:40)
[2020-12-26] MEDS ORDERED: VORT20TA PO (23:40)
[2020-12-27] MEDS ORDERED: LORazepam 2 MG/ML VIAL IVP ONE (03:15)
[2020-12-27 04:18] VITALS: BP_SYST 111
[2020-12-27] MEDS: D5NS 1,000 ML IV SCH ×3 (04:35→15:47)
[2020-12-27 08:15] VITALS: BP_SYST 116
[2020-12-27] MEDS ORDERED: POTASSIUM CHLORIDE 20 MEQ TAB.PRT.SR PO PRN (08:15)
[2020-12-27] MEDS ORDERED: ACETAMINOPHEN 325 MG TABLET PO PRN (08:15)
[2020-12-27] MEDS ORDERED: MAGNESIUM SULFATE 50 ML IV PRN (08:15)
[2020-12-27] MEDS ORDERED: ONDANSETRON HCL 4 MG/2 ML VIAL IVP PRN (08:15)
[2020-12-27] MEDS ORDERED: DOCUSATE SODIUM 100 MG CAPSULE PO PRN (08:15)
[2020-12-27] MEDS ORDERED: ZOLPIDEM TARTRATE 5 MG TABLET PO PRN (08:15)
[2020-12-27] MEDS ORDERED: MUPIROCIN 2% TOPICAL OINTMENT 22 GM NS PRN (08:15)
[2020-12-27] MEDS: levETIRAcetam 500 MG IV PREMIX 100 ML IV SCH ×2 (08:31→20:28)
[2020-12-27] MEDS: FAMOTIDINE 20 MG TABLET PO SCH ×2 (09:00→20:25)
[2020-12-27] MEDS: TOPIRAMATE 25 MG TABLET(TOPAMAX) PO SCH ×2 (09:00→20:25)
[2020-12-27] MEDS ORDERED: TRINTELLIX 20 MG PO ONE (11:00)
[2020-12-27] MEDS ORDERED: ORILISSA PO ONE (11:00)
[2020-12-27] MEDS ORDERED: DROSPIRENONE 4 MG PO ONE (11:00)
[2020-12-27 12:05] VITALS: BP_SYST 121
[2020-12-27 16:20] VITALS: BP_SYST 127
[2020-12-27 16:21] LABS: HCG,QUAL RESULT NEGATIVE (NEGATIVE)
[2020-12-27] MEDS: LORazepam 2 MG/ML VIAL IVP PRN ×2 (17:07→20:55)
[2020-12-27 20:00] VITALS: BP_SYST 105
[2020-12-27] MEDS: GABAPENTIN 400 MG CAPSULE PO SCH (20:24)
[2020-12-27] MEDS: ACETAMINOPHEN 325 MG TABLET PO PRN (20:24)
[2020-12-27] MEDS: LITHIUM CARBONATE 300 MG TABLET.SA PO SCH (20:26)
[2020-12-27] MEDS: VRAYLAR 3 MG CAPSULE PO SCH (20:28)
[2020-12-28] VITALS: BP_SYST 113
[2020-12-28] MEDS: LORazepam 2 MG/ML VIAL IVP PRN ×3 (01:36→18:00)
[2020-12-28] MEDS: D5NS 1,000 ML IV SCH ×2 (02:57→18:00)
[2020-12-28 08:00] VITALS: BP_SYST 138
[2020-12-28] MEDS ORDERED: levETIRAcetam 500 MG in NS 100 ML IV SCH (09:00)
[2020-12-28] MEDS: FAMOTIDINE 20 MG TABLET PO SCH ×2 (09:47→20:30)
[2020-12-28] MEDS: TOPIRAMATE 25 MG TABLET(TOPAMAX) PO SCH ×2 (09:48→20:29)
[2020-12-28] MEDS: levETIRAcetam 1,000 MG in NS 100 ML IV SCH ×2 (09:49→21:34)
[2020-12-28] MEDS: TRINTELLIX 20 MG PO SCH (09:50)
[2020-12-28] MEDS: ORILISSA PO SCH (09:54)
[2020-12-28] MEDS: DROSPIRENONE 4 MG PO SCH (10:03)
[2020-12-28 12:15] VITALS: BP_SYST 123
[2020-12-28 16:00] VITALS: BP_SYST 119
[2020-12-28] MEDS: ACETAMINOPHEN 325 MG TABLET PO PRN (18:13)
[2020-12-28 20:00] VITALS: BP_SYST 132
[2020-12-28] MEDS: GABAPENTIN 400 MG CAPSULE PO SCH (20:29)
[2020-12-28] MEDS: LITHIUM CARBONATE 300 MG TABLET.SA PO SCH (20:29)
[2020-12-28] MEDS: VRAYLAR 3 MG CAPSULE PO SCH (20:32)
[2020-12-29] MEDS: ACETAMINOPHEN 325 MG TABLET PO PRN (00:09)
[2020-12-29] MEDS: LORazepam 2 MG/ML VIAL IVP PRN ×4 (00:35→14:08)
[2020-12-29] MEDS: D5NS 1,000 ML IV SCH ×3 (03:37→14:07)
[2020-12-29] MEDS ORDERED: KETOROLAC TROMETHAMINE 15 MG VIAL IVP ONE (06:45)
[2020-12-29 07:12] LABS: BASOPHILS # (AUTO) 0.1 K/uL (0.0-0.2); BASOPHILS % (AUTO) 0.7 % (0.0-2.0); EOSINOPHILS # (AUTO) 0.1 K/uL (0.0-0.4); EOSINOPHILS % (AUTO) 1.1 % (0.0-4.0); HEMATOCRIT 38.9 % (36-48); HEMOGLOBIN 12.7 g/dL (12.0-16.0); LYMPHOCYTES # (AUTO) 2.5 K/uL (1.0-5.5); LYMPHOCYTES % (AUTO) 32.8 % (20.5-51.5); MEAN CORPUSCULAR HEMOGLOBIN 33 pg (27-31); MEAN CORPUSCULAR HGB CONC 33 % (32-36); MEAN CORPUSCULAR VOLUME 100 fL (79.0-98.0); MONOCYTES # (AUTO) 0.5 K/uL (0.0-1.0); MONOCYTES % (AUTO) 6.5 % (1.7-9.3); NEUTROPHILS # (AUTO) 4.5 K/uL (1.8-7.7); NEUTROPHILS % (AUTO) 58.9 % (40.0-70.0); PLATELET COUNT (AUTO) 268 K/uL (130-430); RED CELL DISTRIBUTION WIDTH 14.7 % (9.0-15.0); WHITE BLOOD COUNT (AUTO) 7.7 K/uL (4.8-10.8)
[2020-12-29 07:17] LABS: CREATININE 0.88 mg/dL (0.55-1.30); POTASSIUM 3.3 mmol/L (3.5-5.1)
[2020-12-29] MEDS: TOPIRAMATE 25 MG TABLET(TOPAMAX) PO SCH ×2 (10:03→21:24)
[2020-12-29] MEDS: FAMOTIDINE 20 MG TABLET PO SCH ×2 (10:03→21:23)
[2020-12-29] MEDS: ORILISSA PO SCH (10:04)
[2020-12-29] MEDS: TRINTELLIX 20 MG PO SCH (10:09)
[2020-12-29] MEDS: DROSPIRENONE 4 MG PO SCH (10:11)
[2020-12-29] MEDS: levETIRAcetam 1,000 MG in NS 100 ML IV SCH (10:23)
[2020-12-29 12:14] VITALS: BP_SYST 113
[2020-12-29 16:08] VITALS: BP_SYST 115
[2020-12-29] MEDS ORDERED: LamoTRIgine 25 MG TABLET PO ONE (16:15)
[2020-12-29 20:26] VITALS: BP_SYST 112
[2020-12-29] MEDS: GABAPENTIN 400 MG CAPSULE PO SCH (21:22)
[2020-12-29] MEDS: LITHIUM CARBONATE 300 MG TABLET.SA PO SCH (21:23)
[2020-12-29] MEDS: VRAYLAR 3 MG CAPSULE PO SCH (21:28)
[2020-12-30 00:03] VITALS: BP_SYST 116
[2020-12-30] MEDS: KETOROLAC TROMETHAMINE 15 MG VIAL IVP PRN ×3 (01:08→19:14)
[2020-12-30] MEDS: D5NS 1,000 ML IV SCH ×3 (01:11→21:32)
[2020-12-30 07:16] LABS: BASOPHILS # (AUTO) 0.1 K/uL (0.0-0.2); EOSINOPHILS # (AUTO) 0.1 K/uL (0.0-0.4); EOSINOPHILS % (AUTO) 2.2 % (0.0-4.0); HEMATOCRIT 38.8 % (36-48); HEMOGLOBIN 12.8 g/dL (12.0-16.0); LYMPHOCYTES # (AUTO) 1.9 K/uL (1.0-5.5); LYMPHOCYTES % (AUTO) 31.3 % (20.5-51.5); MEAN CORPUSCULAR HEMOGLOBIN 33 pg (27-31); MEAN CORPUSCULAR HGB CONC 33 % (32-36); MEAN CORPUSCULAR VOLUME 100 fL (79.0-98.0); MONOCYTES # (AUTO) 0.4 K/uL (0.0-1.0); MONOCYTES % (AUTO) 6.6 % (1.7-9.3); NEUTROPHILS # (AUTO) 3.6 K/uL (1.8-7.7); NEUTROPHILS % (AUTO) 58.9 % (40.0-70.0); PLATELET COUNT (AUTO) 246 K/uL (130-430); RED BLOOD CELL COUNT(AUTO) 3.88 MIL/uL (4.2-6.2); RED CELL DISTRIBUTION WIDTH 15.1 % (9.0-15.0); WHITE BLOOD COUNT (AUTO) 6.1 K/uL (4.8-10.8)
[2020-12-30 07:31] LABS: CALCIUM 8.7 mg/dL (8.4-11.0); CREATININE 0.7 mg/dL (0.55-1.30)
[2020-12-30 08:00] VITALS: BP_SYST 112
[2020-12-30 08:19] LABS: POTASSIUM 4.2 mmol/L (3.5-5.1)
[2020-12-30] MEDS ORDERED: LamoTRIgine 25 MG TABLET PO SCH (09:00)
[2020-12-30] MEDS: FAMOTIDINE 20 MG TABLET PO SCH ×2 (09:08→21:21)
[2020-12-30] MEDS: ORILISSA PO SCH (09:10)
[2020-12-30] MEDS: TOPIRAMATE 25 MG TABLET(TOPAMAX) PO SCH ×2 (09:32→21:21)
[2020-12-30] MEDS: TRINTELLIX 20 MG PO SCH (09:33)
[2020-12-30] MEDS: DROSPIRENONE 4 MG PO SCH (09:33)
[2020-12-30 12:20] VITALS: BP_SYST 109
[2020-12-30] MEDS: LORazepam 2 MG/ML VIAL IVP PRN ×2 (15:23→17:11)
[2020-12-30 16:00] VITALS: BP_SYST 120
[2020-12-30 20:38] VITALS: BP_SYST 104
[2020-12-30] MEDS: GABAPENTIN 400 MG CAPSULE PO SCH (21:22)
[2020-12-30] MEDS: levETIRAcetam 500 MG TABLET PO SCH (21:22)
[2020-12-30] MEDS: LITHIUM CARBONATE 300 MG TABLET.SA PO SCH (21:22)
[2020-12-30] MEDS: VRAYLAR 3 MG CAPSULE PO SCH (21:23)
[2020-12-31 00:15] VITALS: BP_SYST 109
[2020-12-31] MEDS: KETOROLAC TROMETHAMINE 15 MG VIAL IVP PRN ×3 (01:09→22:17)
[2020-12-31] MEDS: D5NS 1,000 ML IV SCH ×2 (05:32→16:06)
[2020-12-31] MEDS: LORazepam 2 MG/ML VIAL IVP PRN ×4 (05:58→20:51)
[2020-12-31 07:24] LABS: BASOPHILS % (AUTO) 0.5 % (0.0-2.0); EOSINOPHILS # (AUTO) 0.2 K/uL (0.0-0.4); EOSINOPHILS % (AUTO) 3.3 % (0.0-4.0); HEMATOCRIT 37.9 % (36-48); HEMOGLOBIN 12.6 g/dL (12.0-16.0); LYMPHOCYTES # (AUTO) 2.3 K/uL (1.0-5.5); LYMPHOCYTES % (AUTO) 37.4 % (20.5-51.5); MEAN CORPUSCULAR HEMOGLOBIN 33 pg (27-31); MEAN CORPUSCULAR HGB CONC 33 % (32-36); MEAN CORPUSCULAR VOLUME 100 fL (79.0-98.0); MONOCYTES # (AUTO) 0.5 K/uL (0.0-1.0); MONOCYTES % (AUTO) 7.4 % (1.7-9.3); NEUTROPHILS # (AUTO) 3.1 K/uL (1.8-7.7); NEUTROPHILS % (AUTO) 51.4 % (40.0-70.0); PLATELET COUNT (AUTO) 259 K/uL (130-430); RED BLOOD CELL COUNT(AUTO) 3.81 MIL/uL (4.2-6.2); RED CELL DISTRIBUTION WIDTH 14.8 % (9.0-15.0); WHITE BLOOD COUNT (AUTO) 6.1 K/uL (4.8-10.8)
[2020-12-31 07:43] LABS: CALCIUM 8.9 mg/dL (8.4-11.0); CREATININE 0.76 mg/dL (0.55-1.30); POTASSIUM 3.5 mmol/L (3.5-5.1)
[2020-12-31] MEDS: levETIRAcetam 500 MG TABLET PO SCH ×2 (08:27→20:55)
[2020-12-31] MEDS: FAMOTIDINE 20 MG TABLET PO SCH ×2 (08:28→20:55)
[2020-12-31] MEDS: DROSPIRENONE 4 MG PO SCH (08:28)
[2020-12-31] MEDS: TRINTELLIX 20 MG PO SCH (08:28)
[2020-12-31] MEDS: TOPIRAMATE 25 MG TABLET(TOPAMAX) PO SCH ×2 (08:28→20:55)
[2020-12-31] MEDS: ORILISSA PO SCH (08:28)
[2020-12-31 09:58] VITALS: BP_SYST 102
[2020-12-31 12:37] VITALS: BP_SYST 122
[2020-12-31] MEDS ORDERED: traMADol HCL HCL 50 MG TABLET (ULTRAM) PO PRN (16:00)
[2020-12-31 16:53] VITALS: BP_SYST 126
[2020-12-31 20:00] VITALS: BP_SYST 109
[2020-12-31] MEDS: LITHIUM CARBONATE 300 MG TABLET.SA PO SCH (20:55)
[2020-12-31] MEDS: GABAPENTIN 400 MG CAPSULE PO SCH (20:56)
[2020-12-31] MEDS: VRAYLAR 3 MG CAPSULE PO SCH (20:57)
[2021-01-01 01:24] VITALS: BP_SYST 110
[2021-01-01] MEDS: D5NS 1,000 ML IV SCH ×3 (03:52→21:09)
[2021-01-01] MEDS: LORazepam 2 MG/ML VIAL IVP PRN ×3 (03:52→22:58)
[2021-01-01 08:09] VITALS: BP_SYST 108
[2021-01-01] MEDS: TOPIRAMATE 25 MG TABLET(TOPAMAX) PO SCH ×2 (08:18→21:07)
[2021-01-01] MEDS: levETIRAcetam 500 MG TABLET PO SCH ×2 (08:18→21:08)
[2021-01-01] MEDS: DROSPIRENONE 4 MG PO SCH (08:19)
[2021-01-01] MEDS: FAMOTIDINE 20 MG TABLET PO SCH ×2 (08:19→21:06)
[2021-01-01] MEDS: ORILISSA PO SCH (08:20)
[2021-01-01] MEDS: TRINTELLIX 20 MG PO SCH (08:21)
[2021-01-01] MEDS ORDERED: traMADol HCL HCL 50 MG TABLET (ULTRAM) PO PRN (08:30)
[2021-01-01 10:01] LABS: BASOPHILS % (AUTO) 0.5 % (0.0-2.0); EOSINOPHILS # (AUTO) 0.2 K/uL (0.0-0.4); EOSINOPHILS % (AUTO) 3.6 % (0.0-4.0); HEMATOCRIT 36.1 % (36-48); LYMPHOCYTES # (AUTO) 1.8 K/uL (1.0-5.5); MEAN CORPUSCULAR HEMOGLOBIN 33 pg (27-31); MEAN CORPUSCULAR HGB CONC 33 % (32-36); MEAN CORPUSCULAR VOLUME 100 fL (79.0-98.0); MONOCYTES # (AUTO) 0.3 K/uL (0.0-1.0); MONOCYTES % (AUTO) 5.4 % (1.7-9.3); NEUTROPHILS # (AUTO) 3.2 K/uL (1.8-7.7); NEUTROPHILS % (AUTO) 57.5 % (40.0-70.0); PLATELET COUNT (AUTO) 234 K/uL (130-430); RED BLOOD CELL COUNT(AUTO) 3.61 MIL/uL (4.2-6.2); RED CELL DISTRIBUTION WIDTH 15.8 % (9.0-15.0); WHITE BLOOD COUNT (AUTO) 5.5 K/uL (4.8-10.8)
[2021-01-01 10:24] LABS: CALCIUM 8.3 mg/dL (8.4-11.0); CREATININE 0.85 mg/dL (0.55-1.30); POTASSIUM 3.4 mmol/L (3.5-5.1)
[2021-01-01 12:20] VITALS: BP_SYST 102
[2021-01-01 16:17] VITALS: BP_SYST 106
[2021-01-01 20:00] VITALS: BP_SYST 113
[2021-01-01] MEDS: LITHIUM CARBONATE 300 MG TABLET.SA PO SCH (21:08)
[2021-01-01] MEDS: GABAPENTIN 400 MG CAPSULE PO SCH (21:08)
[2021-01-01] MEDS: VRAYLAR 3 MG CAPSULE PO SCH (21:12)
[2021-01-01] MEDS: KETOROLAC TROMETHAMINE 15 MG VIAL IVP PRN (22:55)
[2021-01-02 00:30] VITALS: BP_SYST 99
[2021-01-02] MEDS: D5NS 1,000 ML IV SCH ×2 (06:45→17:41)
[2021-01-02 08:00] VITALS: BP_SYST 103
[2021-01-02] MEDS: TOPIRAMATE 25 MG TABLET(TOPAMAX) PO SCH ×2 (08:17→20:16)
[2021-01-02] MEDS: levETIRAcetam 500 MG TABLET PO SCH ×2 (08:18→20:16)
[2021-01-02] MEDS: FAMOTIDINE 20 MG TABLET PO SCH ×2 (08:18→20:16)
[2021-01-02] MEDS: TRINTELLIX 20 MG PO SCH (08:20)
[2021-01-02] MEDS: ORILISSA PO SCH (08:21)
[2021-01-02] MEDS: DROSPIRENONE 4 MG PO SCH (08:23)
[2021-01-02 12:30] VITALS: BP_SYST 102
[2021-01-02 16:35] VITALS: BP_SYST 109
[2021-01-02 20:00] VITALS: BP_SYST 113
[2021-01-02] MEDS: LITHIUM CARBONATE 300 MG TABLET.SA PO SCH (20:16)
[2021-01-02] MEDS: GABAPENTIN 400 MG CAPSULE PO SCH (20:16)
[2021-01-02] MEDS: VRAYLAR 3 MG CAPSULE PO SCH (20:18)
[2021-01-03] MEDS: D5NS 1,000 ML IV SCH ×2 (00:37→13:45)
[2021-01-03 00:50] VITALS: BP_SYST 109
[2021-01-03] MEDS: ACETAMINOPHEN 325 MG TABLET PO PRN (05:05)
[2021-01-03 08:00] VITALS: BP_SYST 111
[2021-01-03] MEDS: TOPIRAMATE 25 MG TABLET(TOPAMAX) PO SCH (08:23)
[2021-01-03] MEDS: levETIRAcetam 500 MG TABLET PO SCH (08:23)
[2021-01-03] MEDS: TRINTELLIX 20 MG PO SCH (08:24)
[2021-01-03] MEDS: FAMOTIDINE 20 MG TABLET PO SCH (08:24)
[2021-01-03] MEDS: ORILISSA PO SCH (08:24)
[2021-01-03] MEDS: DROSPIRENONE 4 MG PO SCH (08:25)
[2021-01-03] MEDS ORDERED: TRAM50TA2 PO (09:22)
[2021-01-03] MEDS ORDERED: LEVE1000 PO (09:22)
[2021-01-03 12:31] VITALS: BP_SYST 110
[2021-01-03 15:34] VITALS: BP_SYST 115
[2021-01-03 16:22] VITALS: BP_SYST 112
== END 2021-01-03 19:30 | disposition home health service (06) | DRG 101 ==
LOC: SED 18:52 → STU 12-27 01:37
PROVIDERS: ADMIT General Practice; ATTEND General Practice
DX: G40.909 Epilepsy, unspecified, not intractable, without status epilepticus (principal); F11.20 Opioid dependence, uncomplicated; E66.9 Obesity, unspecified; F31.9 Bipolar disorder, unspecified; K21.9 Gastro-esophageal reflux disease without esophagitis; J45.909 Unspecified asthma, uncomplicated; K58.9 Irritable bowel syndrome, unspecified; Z20.822 Contact with and (suspected) exposure to COVID-19; Z87.442 Personal history of urinary calculi; Z90.49 Acquired absence of other specified parts of digestive tract; Z91.5 Personal history of self-harm; Z91.040 Latex allergy status; Z88.8 Allergy status to other drugs, medicaments and biological substances; Z79.899 Other long term (current) drug therapy; Z68.31 Body mass index [BMI] 31.0-31.9, adult
CPT/HCPCS: 36415; 70450-TC; 71045; 76376; 80048; 80053; 80178; 80307; 81003; 83036; 83735; 84703; 85025; 85610-TC; 92610-GN; 95816; 96361; 96372; 96374; 97110-GP; 97116-GP; 97530-GP; 99285; G0378; J1885; J1953; J2060

== ENCOUNTER 2023-01-21 20:29 | Inpatient (IN) | payer BC ==
[~2023-01-21] VITALS: Ht 162.6 cm; Wt 77.1 kg
[~2023-01-21 20:29] MED LIST changes: -ALPR0.25 PO; +ALPR1TAB2 PO; -BUDE3CAP8 PO; -BUDE6.9H INH; +CARI4.5C PO; -DOCU-144 PO; +DROS4TAB PO; +ELAG150T PO; -FERR-57 PO; +GABA800T PO; -IRON1CAP27 PO; +LEVE1000 PO; -LIALDA; +LITH600C PO; -LOM2.5 PO; -ONDA4TAB22 PO; +PROC10TA13 PO; +SUCR1TAB2 PO; -SUCR1TAB78 PO; +TRAM50TA2 PO; -TRAM50TA92 PO; -TRAZ-251 PO; -TRAZ150T77 PO; -VENL75CA PO; +VORT20TA PO
[2023-01-21 21:36] VITALS: BP_SYST 121; PULSE 75; RESP 17; TEMP 97.4; O2SAT 99
[2023-01-21 22:22] LABS: BASOPHILS % (AUTO) 0.3 % (0.0-2.0); EOSINOPHILS # (AUTO) 0.1 K/uL (0.0-0.4); EOSINOPHILS % (AUTO) 1.2 % (0.0-4.0); HEMOGLOBIN 12.7 g/dL (12.0-16.0); LYMPHOCYTES # (AUTO) 1.8 K/uL (1.0-5.5); MEAN CORPUSCULAR HEMOGLOBIN 31 pg (27-31); MEAN CORPUSCULAR HGB CONC 32 % (32-36); MEAN CORPUSCULAR VOLUME 98 fL (79.0-98.0); MONOCYTES # (AUTO) 0.6 K/uL (0.0-1.0); MONOCYTES % (AUTO) 6.3 % (1.7-9.3); NEUTROPHILS # (AUTO) 7.5 K/uL (1.8-7.7); NEUTROPHILS % (AUTO) 74.2 % (40.0-70.0); PLATELET COUNT (AUTO) 314 K/uL (130-430); RED BLOOD CELL COUNT(AUTO) 4.09 MIL/uL (4.2-6.2); RED CELL DISTRIBUTION WIDTH 14.6 % (9.0-15.0); WHITE BLOOD COUNT (AUTO) 10.1 K/uL (4.8-10.8)
[2023-01-21 22:56] LABS: CALCIUM 9.4 mg/dL (8.4-11.0); CREATININE 0.84 mg/dL (0.55-1.30); POTASSIUM 3.2 mmol/L (3.5-5.1)
[2023-01-21 23:01] LABS: ALBUMIN 3.9 g/dL (3.4-4.8); TOTAL BILIRUBIN 0.8 mg/dL (0.0-1.0); TOTAL PROTEIN, SERUM 7.2 g/dL (6.4-8.3)
[2023-01-21 23:34] LABS: BILIRUBIN,URINE NEGATIVE (NEGATIVE); BLOOD, URINE NEGATIVE (NEGATIVE); CLARITY/URINE SLIGHTLY HAZY (CLEAR); COLOR,URINE YELLOW (YELLOW); GLUCOSE,URINE NEGATIVE (NEGATIVE); KETONES,URINE NEGATIVE (NEGATIVE); LEUKOCYTE ESTERASE ,URINE 1+ (NEGATIVE); NITRITE, URINE NEGATIVE (NEGATIVE); PROTEIN URINE TRACE (NEGATIVE); UROBILINOGEN,URINE 0.2 (0.2-1.0)
[2023-01-21 23:36] LABS: BACTERIA,URINE FEW /HPF (None Seen); MUCUS,URINE None Seen /LPF (None Seen); RBC,URINE 0-3 /HPF (0-3)
[2023-01-22] MEDS ORDERED: NACL 0.9% 1,000 ML IV ONE (00:15)
[2023-01-22] MEDS ORDERED: HYDROmorphone 1 MG/ML INJ. CARTRIDGE IVP ONE ×3 (00:15→06:00)
[2023-01-22] MEDS ORDERED: ONDANSETRON HCL 4 MG/2 ML VIAL IVP ONE ×2 (00:15→03:00)
[2023-01-22] MEDS ORDERED: ONDANSETRON HCL 4 MG/2 ML VIAL ONE (06:24)
[2023-01-22] MEDS ORDERED: LURA40TA2 PO (06:37)
[2023-01-22] MEDS ORDERED: LITH300C2 PO (06:37)
[2023-01-22] MEDS ORDERED: SUCR1TAB2 PO (06:37)
[2023-01-22] MEDS ORDERED: [UNRECOGNIZED DRUG - OTHER] PO (06:45)
[2023-01-22] MEDS: ONDANSETRON HCL 4 MG/2 ML VIAL IVP PRN ×5 (06:45→23:21)
[2023-01-22] MEDS: D5/0.45 NS 1,000 ML IV SCH ×3 (07:41→21:07)
[2023-01-22 09:24] VITALS: BP_SYST 120; PULSE 76; RESP 18; TEMP 96.5; O2SAT 99
[2023-01-22] MEDS: MORPHINE 4 MG INJ. 4 MG/ML VIAL IVP PRN ×4 (09:34→23:22)
[2023-01-22 10:01] VITALS: O2SAT 99
[2023-01-22] MEDS ORDERED: LORazepam 2 MG/ML VIAL IVP PRN (10:30)
[2023-01-22] MEDS ORDERED: ELAGOLIX SODIUM 150 MG PO SCH (10:30)
[2023-01-22] MEDS ORDERED: VORTIOXETINE HYDROBROMIDE PO SCH (10:30)
[2023-01-22 11:11] LABS: BASOPHILS % (AUTO) 0.2 % (0.0-2.0); EOSINOPHILS # (AUTO) 0.1 K/uL (0.0-0.4); EOSINOPHILS % (AUTO) 0.6 % (0.0-4.0); HEMATOCRIT 36.8 % (36-48); HEMOGLOBIN 11.6 g/dL (12.0-16.0); LYMPHOCYTES # (AUTO) 1.2 K/uL (1.0-5.5); LYMPHOCYTES % (AUTO) 10.1 % (20.5-51.5); MEAN CORPUSCULAR HEMOGLOBIN 31 pg (27-31); MEAN CORPUSCULAR HGB CONC 32 % (32-36); MEAN CORPUSCULAR VOLUME 98 fL (79.0-98.0); MONOCYTES # (AUTO) 0.8 K/uL (0.0-1.0); MONOCYTES % (AUTO) 7.1 % (1.7-9.3); NEUTROPHILS # (AUTO) 9.8 K/uL (1.8-7.7); PLATELET COUNT (AUTO) 281 K/uL (130-430); RED BLOOD CELL COUNT(AUTO) 3.77 MIL/uL (4.2-6.2); RED CELL DISTRIBUTION WIDTH 14.7 % (9.0-15.0); WHITE BLOOD COUNT (AUTO) 11.9 K/uL (4.8-10.8)
[2023-01-22 11:30] LABS: CREATININE 0.77 mg/dL (0.55-1.30); TOTAL BILIRUBIN 0.5 mg/dL (0.0-1.0)
[2023-01-22] MEDS: cefTRIAXone 1 GM IVPB PREMIX 50 ML IV SCH (12:52)
[2023-01-22] MEDS: SUCRALFATE 1 GM TABLET PO SCH ×2 (14:19→21:06)
[2023-01-22 20:00] VITALS: BP_SYST 132; PULSE 89; RESP 16; TEMP 97.5; O2SAT 99
[2023-01-22] MEDS ORDERED: [UNRECOGNIZED DRUG - OTHER] PO SCH (21:00)
[2023-01-22] MEDS ORDERED: LURASIDONE HCL 40 MG PO SCH (21:00)
[2023-01-22] MEDS: LURASIDONE HCL 40 MG PO SCH (21:06)
[2023-01-22] MEDS: LITHIUM CARBONATE 300 MG TABLET.SA PO SCH (21:16)
[2023-01-23] VITALS (7 sets, daily range): BP systolic 111–135; PULSE 53–82; RESP 16–18; TEMP 97.1–98.4; O2SAT 97–100
[2023-01-23 05:16] LABS: BASOPHILS % (AUTO) 0.3 % (0.0-2.0); EOSINOPHILS # (AUTO) 0.1 K/uL (0.0-0.4); EOSINOPHILS % (AUTO) 0.8 % (0.0-4.0); HEMATOCRIT 34.3 % (36-48); HEMOGLOBIN 11.2 g/dL (12.0-16.0); LYMPHOCYTES # (AUTO) 1.8 K/uL (1.0-5.5); LYMPHOCYTES % (AUTO) 22.9 % (20.5-51.5); MEAN CORPUSCULAR HEMOGLOBIN 32 pg (27-31); MEAN CORPUSCULAR HGB CONC 33 % (32-36); MEAN CORPUSCULAR VOLUME 98 fL (79.0-98.0); MONOCYTES # (AUTO) 0.5 K/uL (0.0-1.0); MONOCYTES % (AUTO) 6.8 % (1.7-9.3); NEUTROPHILS # (AUTO) 5.4 K/uL (1.8-7.7); NEUTROPHILS % (AUTO) 69.2 % (40.0-70.0); PLATELET COUNT (AUTO) 272 K/uL (130-430); RED BLOOD CELL COUNT(AUTO) 3.51 MIL/uL (4.2-6.2); RED CELL DISTRIBUTION WIDTH 14.8 % (9.0-15.0); WHITE BLOOD COUNT (AUTO) 7.9 K/uL (4.8-10.8)
[2023-01-23] MEDS: D5/0.45 NS 1,000 ML IV SCH ×2 (05:20→20:11)
[2023-01-23] MEDS: MORPHINE 4 MG INJ. 4 MG/ML VIAL IVP PRN ×3 (05:28→22:05)
[2023-01-23] MEDS: ONDANSETRON HCL 4 MG/2 ML VIAL IVP PRN ×5 (05:29→22:05)
[2023-01-23 05:33] LABS: CREATININE 0.66 mg/dL (0.55-1.30); POTASSIUM 3.3 mmol/L (3.5-5.1)
[2023-01-23] MEDS: SUCRALFATE 1 GM TABLET PO SCH ×3 (08:44→20:11)
[2023-01-23] MEDS: VORTIOXETINE HYDROBROMIDE PO SCH (08:45)
[2023-01-23] MEDS: LITHIUM CARBONATE 300 MG TABLET.SA PO SCH ×2 (08:45→20:11)
[2023-01-23] MEDS: ELAGOLIX SODIUM 150 MG PO SCH (09:00)
[2023-01-23] MEDS ORDERED: VORTIOXETINE HYDROBROMIDE PO SCH (09:00)
[2023-01-23] MEDS: MORPHINE 2 MG/ML INJ. SYRINGE IVP PRN ×2 (09:37→18:03)
[2023-01-23] MEDS ORDERED: KCL 40 mEq in 100 mL (PREMIX) 100 ML IV ONE (10:30)
[2023-01-23] MEDS: cefTRIAXone 1 GM IVPB PREMIX 50 ML IV SCH (12:42)
[2023-01-23] MEDS: POTASSIUM CHLORIDE 20 mEq in 100 mL (PREMIX) 100 ML x 2 doses IV SCH ×2 (13:43→16:03)
[2023-01-23] MEDS: LURASIDONE HCL 40 MG PO SCH (20:12)
[2023-01-24 00:40] VITALS: BP_SYST 120; PULSE 74; RESP 17; TEMP 98.1; O2SAT 95
[2023-01-24] MEDS: MORPHINE 4 MG INJ. 4 MG/ML VIAL IVP PRN ×4 (03:18→21:18)
[2023-01-24] MEDS: ONDANSETRON HCL 4 MG/2 ML VIAL IVP PRN ×4 (03:18→21:18)
[2023-01-24] MEDS: D5/0.45 NS 1,000 ML IV SCH ×2 (05:29→18:21)
[2023-01-24 06:01] LABS: BASOPHILS % (AUTO) 0.3 % (0.0-2.0); EOSINOPHILS # (AUTO) 0.1 K/uL (0.0-0.4); EOSINOPHILS % (AUTO) 1.5 % (0.0-4.0); HEMATOCRIT 34.4 % (36-48); HEMOGLOBIN 11.2 g/dL (12.0-16.0); LYMPHOCYTES # (AUTO) 1.8 K/uL (1.0-5.5); LYMPHOCYTES % (AUTO) 25.2 % (20.5-51.5); MEAN CORPUSCULAR HEMOGLOBIN 32 pg (27-31); MEAN CORPUSCULAR HGB CONC 33 % (32-36); MEAN CORPUSCULAR VOLUME 98 fL (79.0-98.0); MONOCYTES # (AUTO) 0.6 K/uL (0.0-1.0); MONOCYTES % (AUTO) 8.2 % (1.7-9.3); NEUTROPHILS # (AUTO) 4.7 K/uL (1.8-7.7); NEUTROPHILS % (AUTO) 64.8 % (40.0-70.0); PLATELET COUNT (AUTO) 264 K/uL (130-430); RED BLOOD CELL COUNT(AUTO) 3.53 MIL/uL (4.2-6.2); RED CELL DISTRIBUTION WIDTH 14.7 % (9.0-15.0); WHITE BLOOD COUNT (AUTO) 7.2 K/uL (4.8-10.8)
[2023-01-24 06:25] LABS: ERYTHROCYTE SEDIMENTATION RATE 10 MM/HR (0-20)
[2023-01-24] MEDS ORDERED: PANTOPRAZOLE SODIUM 40 MG/VIAL (PROTONIX) IVP ONE (06:30)
[2023-01-24] MEDS ORDERED: METOCLOPRAMIDE HCL 10 MG/2 ML VIAL IVP ONE (06:30)
[2023-01-24 06:38] LABS: BILIRUBIN,DIRECT 0.1 mg/dL (0.0-0.3); CALCIUM 8.3 mg/dL (8.4-11.0); CREATININE 0.7 mg/dL (0.55-1.30); POTASSIUM 3.3 mmol/L (3.5-5.1); TOTAL BILIRUBIN 0.3 mg/dL (0.0-1.0); TOTAL PROTEIN, SERUM 5.9 g/dL (6.4-8.3)
[2023-01-24 08:00] VITALS: BP_SYST 116; PULSE 60; RESP 16; TEMP 98; O2SAT 98
[2023-01-24] MEDS: SUCRALFATE 1 GM TABLET PO SCH ×3 (08:35→21:08)
[2023-01-24] MEDS: LITHIUM CARBONATE 300 MG TABLET.SA PO SCH ×2 (08:40→21:16)
[2023-01-24] MEDS: VORTIOXETINE HYDROBROMIDE PO SCH (08:41)
[2023-01-24] MEDS: ELAGOLIX SODIUM 150 MG PO SCH (08:44)
[2023-01-24] MEDS ORDERED: DICYCLOMINE HCL 10 MG CAPSULE PO ONE (10:00)
[2023-01-24] MEDS ORDERED: KCL 40 mEq in 100 mL (PREMIX) 100 ML IV ONE (11:00)
[2023-01-24] MEDS: POTASSIUM CHLORIDE 20 mEq in 100 mL (PREMIX) 100 ML x 2 doses IV SCH ×2 (11:49→13:34)
[2023-01-24] MEDS: METOCLOPRAMIDE HCL 10 MG/2 ML VIAL IVP SCH ×3 (11:59→23:26)
[2023-01-24 13:00] VITALS: BP_SYST 110; PULSE 54; RESP 16; TEMP 98.2; O2SAT 98
[2023-01-24] MEDS: cefTRIAXone 1 GM IVPB PREMIX 50 ML IV SCH (13:23)
[2023-01-24 16:00] VITALS: BP_SYST 136; PULSE 89; RESP 18; TEMP 98.2; O2SAT 100
[2023-01-24 19:00] VITALS: O2SAT 98
[2023-01-24 20:00] VITALS: BP_SYST 134; PULSE 86; RESP 16; TEMP 96.1; O2SAT 98
[2023-01-24] MEDS: DICYCLOMINE HCL 10 MG CAPSULE PO SCH (21:08)
[2023-01-24] MEDS: LURASIDONE HCL 40 MG PO SCH (21:08)
[2023-01-25 00:18] VITALS: BP_SYST 124; PULSE 66; RESP 14; TEMP 97.7; O2SAT 99
[2023-01-25] MEDS: D5/0.45 NS 1,000 ML IV SCH ×2 (01:37→13:20)
[2023-01-25] MEDS: MORPHINE 4 MG INJ. 4 MG/ML VIAL IVP PRN ×4 (01:54→18:47)
[2023-01-25] MEDS: ONDANSETRON HCL 4 MG/2 ML VIAL IVP PRN ×3 (01:54→06:44)
[2023-01-25 05:13] LABS: BASOPHILS % (AUTO) 0.6 % (0.0-2.0); EOSINOPHILS # (AUTO) 0.1 K/uL (0.0-0.4); EOSINOPHILS % (AUTO) 1.7 % (0.0-4.0); HEMATOCRIT 33.3 % (36-48); HEMOGLOBIN 10.9 g/dL (12.0-16.0); LYMPHOCYTES # (AUTO) 1.9 K/uL (1.0-5.5); LYMPHOCYTES % (AUTO) 27.3 % (20.5-51.5); MEAN CORPUSCULAR HEMOGLOBIN 32 pg (27-31); MEAN CORPUSCULAR HGB CONC 33 % (32-36); MEAN CORPUSCULAR VOLUME 97 fL (79.0-98.0); MONOCYTES # (AUTO) 0.5 K/uL (0.0-1.0); MONOCYTES % (AUTO) 7.6 % (1.7-9.3); NEUTROPHILS # (AUTO) 4.4 K/uL (1.8-7.7); NEUTROPHILS % (AUTO) 62.8 % (40.0-70.0); PLATELET COUNT (AUTO) 266 K/uL (130-430); RED BLOOD CELL COUNT(AUTO) 3.43 MIL/uL (4.2-6.2); RED CELL DISTRIBUTION WIDTH 14.5 % (9.0-15.0); WHITE BLOOD COUNT (AUTO) 6.9 K/uL (4.8-10.8)
[2023-01-25 05:25] LABS: ERYTHROCYTE SEDIMENTATION RATE 10 MM/HR (0-20)
[2023-01-25 05:32] LABS: ALBUMIN 2.9 g/dL (3.4-4.8); CALCIUM 7.9 mg/dL (8.4-11.0); CREATININE 0.65 mg/dL (0.55-1.30); TOTAL BILIRUBIN 0.3 mg/dL (0.0-1.0); TOTAL PROTEIN, SERUM 5.7 g/dL (6.4-8.3)
[2023-01-25] MEDS: METOCLOPRAMIDE HCL 10 MG/2 ML VIAL IVP SCH ×3 (06:46→18:48)
[2023-01-25] MEDS ORDERED: KCL 20 mEq in 100 mL (PREMIX) 200 ML IV ONE (07:30)
[2023-01-25 08:02] VITALS: BP_SYST 128; PULSE 61; RESP 17; TEMP 97.4; O2SAT 97
[2023-01-25 08:12] VITALS: O2SAT 97
[2023-01-25] MEDS: SUCRALFATE 1 GM TABLET PO SCH ×3 (08:50→22:20)
[2023-01-25] MEDS: LITHIUM CARBONATE 300 MG TABLET.SA PO SCH ×2 (08:50→22:21)
[2023-01-25] MEDS: DICYCLOMINE HCL 10 MG CAPSULE PO SCH ×2 (08:51→22:20)
[2023-01-25] MEDS: PANTOPRAZOLE SODIUM 40 MG/VIAL (PROTONIX) IVP SCH (08:51)
[2023-01-25] MEDS: ELAGOLIX SODIUM 150 MG PO SCH (09:00)
[2023-01-25] MEDS: VORTIOXETINE HYDROBROMIDE PO SCH (10:49)
[2023-01-25 12:37] VITALS: BP_SYST 136; PULSE 69; RESP 17; TEMP 98.1; O2SAT 97
[2023-01-25] MEDS: cefTRIAXone 1 GM IVPB PREMIX 50 ML IV SCH (13:59)
[2023-01-25 17:00] VITALS: BP_SYST 132; PULSE 82; RESP 19; TEMP 97.3; O2SAT 97
[2023-01-25 20:00] VITALS: O2SAT 97
[2023-01-25] MEDS: LURASIDONE HCL 40 MG PO SCH (21:00)
[2023-01-26] VITALS: O2SAT 97
[2023-01-26] MEDS: METOCLOPRAMIDE HCL 10 MG/2 ML VIAL IVP SCH ×5 (00:42→23:47)
[2023-01-26] MEDS: MORPHINE 4 MG INJ. 4 MG/ML VIAL IVP PRN ×5 (00:43→23:48)
[2023-01-26] MEDS: D5/0.45 NS 1,000 ML IV SCH ×3 (00:44→20:15)
[2023-01-26 04:00] VITALS: O2SAT 97
[2023-01-26 07:53] LABS: HCG,QUAL RESULT NEGATIVE (NEGATIVE)
[2023-01-26 08:24] LABS: BASOPHILS % (AUTO) 0.5 % (0.0-2.0); EOSINOPHILS # (AUTO) 0.1 K/uL (0.0-0.4); EOSINOPHILS % (AUTO) 0.9 % (0.0-4.0); HEMATOCRIT 33.9 % (36-48); HEMOGLOBIN 11.4 g/dL (12.0-16.0); LYMPHOCYTES % (AUTO) 14.7 % (20.5-51.5); MEAN CORPUSCULAR HEMOGLOBIN 32 pg (27-31); MEAN CORPUSCULAR HGB CONC 34 % (32-36); MEAN CORPUSCULAR VOLUME 96 fL (79.0-98.0); MONOCYTES # (AUTO) 0.5 K/uL (0.0-1.0); MONOCYTES % (AUTO) 7.3 % (1.7-9.3); NEUTROPHILS # (AUTO) 5.3 K/uL (1.8-7.7); NEUTROPHILS % (AUTO) 76.6 % (40.0-70.0); PLATELET COUNT (AUTO) 259 K/uL (130-430); RED BLOOD CELL COUNT(AUTO) 3.53 MIL/uL (4.2-6.2); RED CELL DISTRIBUTION WIDTH 14.2 % (9.0-15.0)
[2023-01-26 08:30] VITALS: BP_SYST 129; PULSE 75; RESP 17; TEMP 98.3; O2SAT 98
[2023-01-26 08:48] LABS: INR 1.2 (0.8-1.2); PROTHROMBIN TIME 12.1 SECS (9.5-12.5)
[2023-01-26 08:50] LABS: ALBUMIN 3.1 g/dL (3.4-4.8); CALCIUM 8.3 mg/dL (8.4-11.0); CREATININE 0.7 mg/dL (0.55-1.30); TOTAL BILIRUBIN 0.3 mg/dL (0.0-1.0); TOTAL PROTEIN, SERUM 6.1 g/dL (6.4-8.3)
[2023-01-26 08:56] LABS: POTASSIUM 2.8 mmol/L (3.5-5.1)
[2023-01-26] MEDS: SUCRALFATE 1 GM TABLET PO SCH ×4 (09:00→20:40)
[2023-01-26] MEDS: DICYCLOMINE HCL 10 MG CAPSULE PO SCH ×3 (09:00→20:40)
[2023-01-26] MEDS: VORTIOXETINE HYDROBROMIDE PO SCH ×2 (09:00→14:06)
[2023-01-26] MEDS: PANTOPRAZOLE SODIUM 40 MG/VIAL (PROTONIX) IVP SCH ×2 (09:00→11:48)
[2023-01-26] MEDS: ELAGOLIX SODIUM 150 MG PO SCH (09:00)
[2023-01-26] MEDS: LITHIUM CARBONATE 300 MG TABLET.SA PO SCH ×3 (09:00→20:40)
[2023-01-26] MEDS ORDERED: PROPOFOL 200MG/ 20ML VIAL (DIPRIVAN) IV ONE (10:00)
[2023-01-26] MEDS ORDERED: METOCLOPRAMIDE HCL 10 MG/10 ML UDC ONE (10:00)
[2023-01-26] MEDS ORDERED: DEXAMETHASONE SOD PHOSPHATE 4 MG/ML VIAL ONE (10:00)
[2023-01-26] MEDS ORDERED: ONDANSETRON HCL 4 MG/2 ML VIAL ONE (10:00)
[2023-01-26] MEDS ORDERED: KCL 40 mEq in 100 mL (PREMIX) 100 ML IV ONE (10:15)
[2023-01-26] MEDS: POTASSIUM CHLORIDE 20 mEq in 100 mL (PREMIX) 100 ML x 2 doses IV SCH ×2 (11:48→13:59)
[2023-01-26 12:30] VITALS: BP_SYST 128; PULSE 76; RESP 18; TEMP 96.9; O2SAT 97
[2023-01-26] MEDS: cefTRIAXone 1 GM IVPB PREMIX 50 ML IV SCH (13:59)
[2023-01-26] MEDS: NICOTINE 14 MG/24 HR PATCH.TD24 TD SCH (14:05)
[2023-01-26] MEDS: ONDANSETRON HCL 4 MG/2 ML VIAL IVP PRN (14:23)
[2023-01-26 14:49] VITALS: O2SAT 97
[2023-01-26 15:12] LABS: BARBITURATE, URINE NEGATIVE (NEG <=200); BENZODIAZEPINE, URINE NEGATIVE (NEG <=150); CANNABINOID, URINE NEGATIVE (NEG <=50); COCAINE, URINE NEGATIVE (NEG <=150); METHAMPHETAMINES SCREEN,URINE NEGATIVE (NEG <=500); PHENCYCLIDINE SCREEN,URINE NEGATIVE (NEG <=25); URINE AMPHETAMINE NEGATIVE (NEG <=500); URINE METHADONE NEGATIVE (NEG <=200)
[2023-01-26 15:13] LABS: OPIATE, URINE POSITIVE (NEG <=100); UR TRICYCLIC ANTIDEPRESSANTS NEGATIVE (NEG <=300); URINE OXYCODONE SCREEN NEGATIVE (NEG <=100); URINE PROPOXYPHENE SCREEN NEGATIVE (NEG <=300)
[2023-01-26 20:00] VITALS: BP_SYST 128; PULSE 93; RESP 18; TEMP 97; O2SAT 98
[2023-01-26] MEDS: LURASIDONE HCL 40 MG PO SCH (20:45)
[2023-01-27] VITALS: BP_SYST 120; PULSE 89; RESP 18; TEMP 98; O2SAT 100
[2023-01-27 00:21] VITALS: BP_SYST 128; PULSE 93; RESP 18; TEMP 97; O2SAT 98
[2023-01-27] MEDS: ONDANSETRON HCL 4 MG/2 ML VIAL IVP PRN (04:15)
[2023-01-27] MEDS: MORPHINE 4 MG INJ. 4 MG/ML VIAL IVP PRN (04:16)
[2023-01-27] MEDS: D5/0.45 NS 1,000 ML IV SCH ×2 (06:06→17:43)
[2023-01-27 06:25] LABS: ERYTHROCYTE SEDIMENTATION RATE 6 MM/HR (0-20)
[2023-01-27] MEDS: METOCLOPRAMIDE HCL 10 MG/2 ML VIAL IVP SCH ×3 (06:29→17:42)
[2023-01-27 06:33] LABS: BASOPHILS % (AUTO) 0.2 % (0.0-2.0); EOSINOPHILS % (AUTO) 0.1 % (0.0-4.0); HEMATOCRIT 32.4 % (36-48); HEMOGLOBIN 10.8 g/dL (12.0-16.0); LYMPHOCYTES % (AUTO) 18.8 % (20.5-51.5); MEAN CORPUSCULAR HEMOGLOBIN 32 pg (27-31); MEAN CORPUSCULAR HGB CONC 33 % (32-36); MEAN CORPUSCULAR VOLUME 96 fL (79.0-98.0); MONOCYTES # (AUTO) 0.7 K/uL (0.0-1.0); MONOCYTES % (AUTO) 6.4 % (1.7-9.3); NEUTROPHILS # (AUTO) 7.8 K/uL (1.8-7.7); NEUTROPHILS % (AUTO) 74.5 % (40.0-70.0); PLATELET COUNT (AUTO) 239 K/uL (130-430); RED BLOOD CELL COUNT(AUTO) 3.38 MIL/uL (4.2-6.2); RED CELL DISTRIBUTION WIDTH 14.7 % (9.0-15.0); WHITE BLOOD COUNT (AUTO) 10.4 K/uL (4.8-10.8)
[2023-01-27 07:01] LABS: ALBUMIN 2.9 g/dL (3.4-4.8); CALCIUM 8.4 mg/dL (8.4-11.0); CREATININE 0.6 mg/dL (0.55-1.30); PHOSPHORUS 2.9 mg/dL (2.7-4.5); TOTAL BILIRUBIN 0.3 mg/dL (0.0-1.0); TOTAL PROTEIN, SERUM 5.6 g/dL (6.4-8.3)
[2023-01-27 07:35] LABS: POTASSIUM 2.9 mmol/L (3.5-5.1)
[2023-01-27 08:30] VITALS: BP_SYST 114; PULSE 53; RESP 17; TEMP 97.8; O2SAT 99
[2023-01-27] MEDS ORDERED: GASTROGRAFIN 120 ML ONE (08:58)
[2023-01-27] MEDS: VORTIOXETINE HYDROBROMIDE PO SCH (09:00)
[2023-01-27] MEDS: DICYCLOMINE HCL 10 MG CAPSULE PO SCH ×2 (09:00→21:00)
[2023-01-27] MEDS: SUCRALFATE 1 GM TABLET PO SCH ×3 (09:00→21:00)
[2023-01-27] MEDS: LITHIUM CARBONATE 300 MG TABLET.SA PO SCH ×2 (09:00→21:00)
[2023-01-27] MEDS: NICOTINE 14 MG/24 HR PATCH.TD24 TD SCH (09:00)
[2023-01-27] MEDS: ELAGOLIX SODIUM 150 MG PO SCH (09:00)
[2023-01-27] MEDS ORDERED: KCL 40 mEq in 100 mL (PREMIX) 100 ML IV ONE (10:00)
[2023-01-27 12:00] VITALS: BP_SYST 118; PULSE 79; RESP 14; TEMP 97.5; O2SAT 98
[2023-01-27] MEDS: cefTRIAXone 1 GM IVPB PREMIX 50 ML IV SCH (13:06)
[2023-01-27] MEDS: POTASSIUM CHLORIDE 20 mEq in 100 mL (PREMIX) 100 ML x 2 doses IV SCH ×2 (13:16→17:42)
[2023-01-27 18:11] VITALS: O2SAT 97
[2023-01-27 20:30] VITALS: BP_SYST 105; PULSE 73; RESP 16; TEMP 99.5; O2SAT 98
[2023-01-27] MEDS: LURASIDONE HCL 40 MG PO SCH (21:00)
[2023-01-27 23:51] LABS: BARBITURATE, URINE NEGATIVE (NEG <=200); BENZODIAZEPINE, URINE NEGATIVE (NEG <=150); CANNABINOID, URINE NEGATIVE (NEG <=50); COCAINE, URINE NEGATIVE (NEG <=150); METHAMPHETAMINES SCREEN,URINE NEGATIVE (NEG <=500); OPIATE, URINE POSITIVE (NEG <=100); PHENCYCLIDINE SCREEN,URINE NEGATIVE (NEG <=25); UR TRICYCLIC ANTIDEPRESSANTS NEGATIVE (NEG <=300); URINE AMPHETAMINE NEGATIVE (NEG <=500); URINE METHADONE NEGATIVE (NEG <=200); URINE OXYCODONE SCREEN NEGATIVE (NEG <=100); URINE PROPOXYPHENE SCREEN NEGATIVE (NEG <=300)
[2023-01-28] MEDS: METOCLOPRAMIDE HCL 10 MG/2 ML VIAL IVP SCH ×3 (00:38→11:23)
[2023-01-28] MEDS: D5/0.45 NS 1,000 ML IV SCH ×2 (02:53→12:29)
[2023-01-28 05:20] LABS: BASOPHILS % (AUTO) 0.4 % (0.0-2.0); EOSINOPHILS # (AUTO) 0.1 K/uL (0.0-0.4); LYMPHOCYTES # (AUTO) 1.9 K/uL (1.0-5.5); LYMPHOCYTES % (AUTO) 25.3 % (20.5-51.5)
[2023-01-28 05:28] LABS: MEAN CORPUSCULAR HEMOGLOBIN 32 pg (27-31); MEAN CORPUSCULAR HGB CONC 33 % (32-36); MEAN CORPUSCULAR VOLUME 96 fL (79.0-98.0); MONOCYTES # (AUTO) 0.6 K/uL (0.0-1.0); MONOCYTES % (AUTO) 8.4 % (1.7-9.3); NEUTROPHILS # (AUTO) 4.8 K/uL (1.8-7.7); NEUTROPHILS % (AUTO) 64.9 % (40.0-70.0); PLATELET COUNT (AUTO) 226 K/uL (130-430); RED BLOOD CELL COUNT(AUTO) 3.43 MIL/uL (4.2-6.2); RED CELL DISTRIBUTION WIDTH 14.9 % (9.0-15.0); WHITE BLOOD COUNT (AUTO) 7.3 K/uL (4.8-10.8)
[2023-01-28 05:55] LABS: ALBUMIN 2.9 g/dL (3.4-4.8); CALCIUM 8.5 mg/dL (8.4-11.0); CREATININE 0.64 mg/dL (0.55-1.30); POTASSIUM 3.3 mmol/L (3.5-5.1); TOTAL BILIRUBIN 0.2 mg/dL (0.0-1.0); TOTAL PROTEIN, SERUM 5.8 g/dL (6.4-8.3)
[2023-01-28 08:00] VITALS: BP_SYST 105; PULSE 58; RESP 17; TEMP 97.1; O2SAT 98
[2023-01-28] MEDS: ELAGOLIX SODIUM 150 MG PO SCH (09:00)
[2023-01-28] MEDS ORDERED: VORTIOXETINE HYDROBROMIDE PO SCH (09:00)
[2023-01-28] MEDS: LITHIUM CARBONATE 300 MG TABLET.SA PO SCH (09:42)
[2023-01-28] MEDS: SUCRALFATE 1 GM TABLET PO SCH ×2 (09:42→14:47)
[2023-01-28] MEDS: DICYCLOMINE HCL 10 MG CAPSULE PO SCH (09:42)
[2023-01-28] MEDS: PANTOPRAZOLE SODIUM 40 MG/VIAL (PROTONIX) IVP SCH (09:42)
[2023-01-28] MEDS: NICOTINE 14 MG/24 HR PATCH.TD24 TD SCH (09:43)
[2023-01-28] MEDS ORDERED: POTASSIUM CHLORIDE 20 MEQ TAB.PRT.SR PO ONE (10:30)
[2023-01-28 12:00] VITALS: BP_SYST 108; PULSE 71; RESP 18; TEMP 98.4; O2SAT 98
[2023-01-28] MEDS: cefTRIAXone 1 GM IVPB PREMIX 50 ML IV SCH (12:29)
[2023-01-28] MEDS ORDERED: SUCR1TAB2 PO (16:18)
[2023-01-28] MEDS ORDERED: METO-290 PO (16:18)
[2023-01-28] MEDS ORDERED: PRO40 PO (16:18)
[2023-01-28 16:41] VITALS: BP_SYST 108; PULSE 71; RESP 18; TEMP 98.4; O2SAT 98
== END 2023-01-28 17:20 | disposition home or self-care (01) | DRG 871 ==
LOC: SED 20:29 → SMU 01-22 06:12
PROVIDERS: ADMIT Preventive Medicine Preventive Medicine/Occupational Environmental Medicine; ATTEND Preventive Medicine Preventive Medicine/Occupational Environmental Medicine
PROC: 0DB78ZX Excision of Stomach, Pylorus, Via Natural or Artificial Opening Endoscopic, Diagnostic (ICD-10-PCS; 2023-01-26)
PROC: 0DBB8ZX Excision of Ileum, Via Natural or Artificial Opening Endoscopic, Diagnostic (ICD-10-PCS; 2023-01-26)
PROC: 0DB98ZX Excision of Duodenum, Via Natural or Artificial Opening Endoscopic, Diagnostic (ICD-10-PCS; principal; 2023-01-26 09:00)
DX: A41.9 Sepsis, unspecified organism (principal); E43 Unspecified severe protein-calorie malnutrition; K91.850 Pouchitis; K51.90 Ulcerative colitis, unspecified, without complications; G40.509 Epileptic seizures related to external causes, not intractable, without status epilepticus; F31.9 Bipolar disorder, unspecified; E88.09 Other disorders of plasma-protein metabolism, not elsewhere classified; D64.9 Anemia, unspecified; K52.9 Noninfective gastroenteritis and colitis, unspecified; K21.00 Gastro-esophageal reflux disease with esophagitis, without bleeding; E87.6 Hypokalemia; E83.51 Hypocalcemia; N34.2 Other urethritis; R74.01 Elevation of levels of liver transaminase levels; T42.6X5A Adverse effect of other antiepileptic and sedative-hypnotic drugs, initial encounter; F41.9 Anxiety disorder, unspecified; J45.909 Unspecified asthma, uncomplicated; K29.70 Gastritis, unspecified, without bleeding; Z93.3 Colostomy status; Z90.49 Acquired absence of other specified parts of digestive tract; Z87.442 Personal history of urinary calculi; Z91.040 Latex allergy status; Z91.018 Allergy to other foods; Z79.899 Other long term (current) drug therapy; Z68.29 Body mass index [BMI] 29.0-29.9, adult; Y92.89 Other specified places as the place of occurrence of the external cause
CPT/HCPCS: 36415; 74018; 74250-TC; 76376; 80048; 80053; 80076; 80178; 80307; 81000; 83690; 84100; 84703; 85025; 85610-TC; 85651-TC; 85730-TC; 87081; 87086; 88305; 88312; 88313; 99285; C9113; J0696; J1100; J1170; J2270; J2405; J2704; J2765; J3480; J7030; J8597; Q9963; Q9967

== ENCOUNTER 2023-02-03 17:03 | Emergency (ER) | payer BC ==
[~2023-02-03] VITALS: Ht 167.6 cm; Wt 72.6 kg
[~2023-02-03 17:03] MED LIST changes: -ALPR1TAB2 PO; -CARI4.5C PO; -DROS4TAB PO; -GABA800T PO; -LEVE1000 PO; +LITH300C2 PO; -LITH600C PO; +LURA40TA2 PO; +METO-290 PO; +PRO40 PO; -PROC10TA13 PO; -TOP25 PO; -TRAM50TA2 PO; -[UNRECOGNIZED DRUG - CODE] PO; +[UNRECOGNIZED DRUG - OTHER] PO
[2023-02-03 17:07] VITALS: BP_SYST 114; PULSE 88; RESP 16; TEMP 98; O2SAT 99
[2023-02-03] MEDS ORDERED: NACL 0.9% 1,000 ML IV ONE (17:15)
[2023-02-03] MEDS ORDERED: KETOROLAC TROMETHAMINE 30 MG VIAL IVP ONE (17:45)
[2023-02-03] MEDS ORDERED: ACETAMINOPHEN 500 MG TABLET PO ONE (19:00)
[2023-02-03] MEDS ORDERED: fentaNYL CITRATE/PF 100 MCG/2 ML AMP IVP ONE (19:00)
[2023-02-03 19:31] VITALS: TEMP 98
[2023-02-03 19:47] LABS: BASOPHILS % (AUTO) 0.4 % (0.0-2.0); EOSINOPHILS # (AUTO) 0.1 K/uL (0.0-0.4); EOSINOPHILS % (AUTO) 0.8 % (0.0-4.0); HEMATOCRIT 37.8 % (36-48); HEMOGLOBIN 11.7 g/dL (12.0-16.0); LYMPHOCYTES # (AUTO) 1.7 K/uL (1.0-5.5); LYMPHOCYTES % (AUTO) 18.4 % (20.5-51.5); MEAN CORPUSCULAR HEMOGLOBIN 32 pg (27-31); MEAN CORPUSCULAR HGB CONC 31 % (32-36); MEAN CORPUSCULAR VOLUME 103 fL (79.0-98.0); MONOCYTES # (AUTO) 0.8 K/uL (0.0-1.0); MONOCYTES % (AUTO) 8.8 % (1.7-9.3); NEUTROPHILS # (AUTO) 6.5 K/uL (1.8-7.7); NEUTROPHILS % (AUTO) 71.6 % (40.0-70.0); PLATELET COUNT (AUTO) 250 K/uL (130-430); RED BLOOD CELL COUNT(AUTO) 3.68 MIL/uL (4.2-6.2); RED CELL DISTRIBUTION WIDTH 15.8 % (9.0-15.0); WHITE BLOOD COUNT (AUTO) 9.1 K/uL (4.8-10.8)
[2023-02-03] MEDS ORDERED: METO-290 PO (19:51)
[2023-02-03] MEDS ORDERED: LOPE2CAP PO (19:51)
[2023-02-03 19:58] LABS: CREATININE 0.55 mg/dL (0.55-1.30); POTASSIUM 4.2 mmol/L (3.5-5.1)
[2023-02-03 20:02] LABS: ALBUMIN 3.1 g/dL (3.4-4.8); PHOSPHORUS 3.4 mg/dL (2.7-4.5); TOTAL BILIRUBIN 0.6 mg/dL (0.0-1.0); TOTAL PROTEIN, SERUM 5.7 g/dL (6.4-8.3)
[2023-02-03 20:24] VITALS: BP_SYST 104; PULSE 89; RESP 16; O2SAT 100
== END 2023-02-03 20:22 | disposition home or self-care (01) ==
LOC: SED 17:03
DX: S16.1XXA Strain of muscle, fascia and tendon at neck level, initial encounter (principal); S00.83XA Contusion of other part of head, initial encounter; E04.1 Nontoxic single thyroid nodule; R55 Syncope and collapse; E86.0 Dehydration; J45.909 Unspecified asthma, uncomplicated; K21.9 Gastro-esophageal reflux disease without esophagitis; Z91.040 Latex allergy status; Z91.018 Allergy to other foods; Z79.899 Other long term (current) drug therapy; X58.XXXA Exposure to other specified factors, initial encounter; Y93.89 Activity, other specified; Y92.89 Other specified places as the place of occurrence of the external cause; Y99.8 Other external cause status
CPT/HCPCS: 99285; 70450; 96374; 96361; 96375; 80053; 83735; 84100; 85025; 85379; 36415; 93005; 70486; 72125; 81025; 76376; J1885; J3010; J7030